=== PATIENT | male | born 1960 | race African-American/Black ===

== ENCOUNTER 2020-02-13 07:17 | Outpatient (REF) | payer BC, SELFPAY ==
[2020-02-17 13:08] LABS: Testosterone, Free 49.4 pg/mL (35.0-155.0); Testosterone, Total 377 ng/dL (250-1100)
== END 2020-02-13 07:18 | disposition home or self-care (01) ==
LOC: HO.LAB 07:17
PROVIDERS: PCP Internal Medicine; Visit Provider Internal Medicine
DX: N52.9 Male erectile dysfunction, unspecified (principal)
CPT/HCPCS: 84402; 84403

== ENCOUNTER 2020-11-05 13:58 | Inpatient (IN) | payer BC, SELFPAY ==
--- NOTE | ~2020-11-05 | XR_ITS ---
EXAMINATION: XR CHEST CLINICAL INFORMATION: Cough, COVID positive COMPARISON: None TECHNIQUE: Portable upright AP view of the chest was obtained. FINDINGS: There are scattered patchy airspace opacities left mid and lower zone and right lower zone. There is no confluent lobar segmental airspace consolidation or effusion. No pneumothorax or pneumomediastinum. The heart is normal in size. The vascularity is normal. There is levocurvature thoracic spine. XR/XR chest 1V IMPRESSION: Scattered patchy airspace opacities greater on left. Finding may be associated with atypical pneumonia/viral process.
[2020-11-05 14:17] VITALS: BP 122/72; BP 147/61; PULSE 115; PULSE 117; RESP 36; TEMP 39.1; O2SAT 87; O2SAT 89; BMI 30.2
--- NOTE | 2020-11-05 14:18 | ECG_ITS ---
Test Reason : DYSPNEA Blood Pressure : / mmHG Vent. Rate : 118 BPM Atrial Rate : 118 BPM P-R Int : 148 ms QRS Dur : 082 ms QT Int : 324 ms P-R-T Axes : 071 -07 024 degrees QTc Int : 454 ms Sinus tachycardia with Premature atrial complexes Otherwise normal ECG When compared with ECG of 05-JUN-2008 12:51, Premature atrial complexes are now Present Heart rate has increased Referred By: Isidro Graves Electronically Signed By:MATT RODRIGUEZ
--- NOTE | 2020-11-05 14:20 | ED_ITS ---
HPI - SOB/Dyspnea General Chief Complaint: Dyspnea Stated Complaint: shortness of breath with chest tightness Time Seen by Provider: 11/05/20 14:12 Source: patient Mode of arrival: ambulatory Limitations: no limitations History of Present Illness HPI Narrative: 60-year-old 10 days positive for COVID presents emergency department complaining of shortness of breath. Patient is an immunized. Patient states he is waiting for more information before he would be vaccinated. Patient arrives hypoxic in the 80s and tachycardic. Patient states he gets very short of breath and can ambulation. Patient states he also has intermittent fevers and headaches. He is not taking anything for the fever or the headache. Patient has baseline chronic back pain insomnia and hypertension MD elicited complaint: shortness of breath Related Data Previous Rx's Medication Instructions Recorded cyclobenzaprine 10 mg tablet 10 mg PO TID PRN 30 Days #90 tab 01/27/20 tadalafil 20 mg tablet 20 mg PO DAILY PRN 30 Days #30 tab 01/27/20 lisinopril 20 mg tablet 20 mg PO DAILY 90 Days #90 tab 04/27/20 naproxen 500 mg tablet 500 mg PO Q12H PRN #60 tab 05/07/20 trazodone 300 mg tablet 300 mg PO BEDTIME PRN 90 Days #90 09/05/20 tab Allergies Allergy/AdvReac Type Severity Reaction Status Date / Time No Known Allergies Allergy Verified 04/27/20 17:28 Review of Systems Review of Systems: Review of systems: General: Patient denies any fever chills recent illness or falls Musculoskeletal: Denies back pain or body aches or other injuries HEENT: headache denies , runny nose, ear pain Respiratory: shortness of breath, cough Cardiovascular: no chest pain or palpitations : denies dysuria, frequency Abdomen: no nausea vomiting denies abdominal pain Extremities: no swelling, no pain Skin: no diaphoresis Yes all other systems are reviewed and are negative PMF Past Medical History Medical History (Updated 11/05/20 @ 15:41 by Isidro Graves DO) Benign essential hypertension Erectile dysfunction Insomnia Lumbar degenerative disc disease Obesity (BMI 30-39.9) Obstructive sleep apnea Spasm of muscle of lower back Surgical History History of colonoscopy History of repair of rotator cuff Family History Family History Father Hypertension Cancer Mother Cancer Social History Social History Alcohol intake: current Alcohol intake frequency: holidays/special occasions only Alcohol type: wine Advance Directives: No Advance Directives Information Provided: No Physical Exam Vital Signs: Vital Signs: Last Vital Signs Temp 102.3 F H 11/05/20 14:17 Pulse 117 H 11/05/20 14:17 Resp 36 H 11/05/20 14:17 BP 122/72 11/05/20 14:17 Pulse Ox 89 L 11/05/20 14:17 Body Mass Index 30.2 General: Well-appearing well-nourished in no signs of distress HEENT: Normocephalic atraumatic Neck: No signs of JVD, no masses no tenderness or lymphadenopathy Cardiovascular: Regular rate and rhythm Respiratory: Clear to auscultation bilaterally Abdomen: Soft nontender no masses . Extremities: Normal pedal pulses no signs of edema Skin: Dry warm no rashes Back: No tenderness full ROM MDM - SOB/Dyspnea MDM Narrative Medical decision making narrative: Concern for worsening COVID I will give patient for x-ray patient is likely going to be admission starts in the 120s he is requiring oxygen at this time. I will give the patient Decadron since he is not wheezing the patient will not need breathing treatments and the patient Decadron. Will give patient fluids and will get a complete workup. 1537 HR improved patient still requiring oxygen and XR consistent with covid I will admit to medicine. Lab Data Result diagrams: 11/05/20 14:35 11/05/20 14:35 Labs: Lab Results 11/05/20 11/05/20 11/05/20 Range/Units 14:35 14:35 14:35 WBC 6.6 (4.8-10.8) X10*3/uL RBC 4.39 L (4.60-5.80) X10*6/uL Hgb 12.0 L (14.0-18.0) g/dl Hct 38.0 L (42-52) % MCV 86.6 (80-98) fL MCH 27.3 (27.0-33.0) pg MCHC 31.6 (31.0-36.0) g/dl RDW 14.0 (11.0-16.0) % Plt Count 173 (160-400) X10*3/uL MPV 10.8 (9.4-12.4) fL Immature Gran % (Auto) 0.3 (0.0-0.4) % Neut % (Auto) 85.6 H (45-73) % Lymph % (Auto) 9.0 L (20-40) % Crockett % (Auto) 5.1 (2-11) % Eos % (Auto) 0.0 (0-4) % Baso % (Auto) 0.0 (0-2) % Lymph # (Auto) 0.6 L (1.2-4.9) X10*3/uL Crockett # (Auto) 0.3 (0.1-1.2) X10*3/uL Eos # (Auto) 0.0 (0.0-0.4) X10*3/uL Baso # (Auto) 0.0 (0.0-0.2) X10*3/uL Abs Immat Gran (auto) 0.02 (0.00-0.03) X10*3/uL Absolute Neuts (auto) 5.7 (2.0-8.3) X10*3/uL Absolute Nucleated RBC 0.000 (0.0-0.012) X10*3/uL Nucleated RBC % (auto) 0.0 (0.0-0.2) /100WBC Sodium 140 (135-145) mmol/L Potassium 4.0 (3.3-5.1) mmol/L Chloride 104 (96-108) mmol/L Carbon Dioxide 26 (22-29) mmol/L Anion Gap 14 (12-20) BUN 13 (9-16) mg/dL Creatinine 1.01 (0.5-1.4) mg/dL Estim Creat Clear Calc 99.6 Estimated GFR > 60 Random Glucose 119 H (60-115) mg/dL Lactic Acid (0.5-2.0) mmol/L Calcium 8.5 (8.4-10.2) mg/dL Total Bilirubin 0.5 (0.0-1.0) mg/dL Direct Bilirubin 0.2 (0.0-0.5) mg/dL AST 36 (5-37) U/L ALT 28 (0-40) U/L Alkaline Phosphatase 37 L (39-117) U/L Troponin I High Sens (<3.5-35.0) ng/L C-Reactive Protein 18.52 H (< or = 0.50) mg/dL Total Protein 6.6 (6.5-8.0) g/dL Albumin 3.7 (3.5-5.0) g/dL Lipase 32 (8-78) U/L COVID-19 ([facility]) (Negative) COVID-19 Clin Com 11/05/20 11/05/20 11/05/20 Range/Units 14:35 14:35 14:36 WBC (4.8-10.8) X10*3/uL RBC (4.60-5.80) X10*6/uL Hgb (14.0-18.0) g/dl Hct (42-52) % MCV (80-98) fL MCH (27.0-33.0) pg MCHC (31.0-36.0) g/dl RDW (11.0-16.0) % Plt Count (160-400) X10*3/uL MPV (9.4-12.4) fL Immature Gran % (Auto) (0.0-0.4) % Neut % (Auto) (45-73) % Lymph % (Auto) (20-40) % Crockett % (Auto) (2-11) % Eos % (Auto) (0-4) % Baso % (Auto) (0-2) % Lymph # (Auto) (1.2-4.9) X10*3/uL Crockett # (Auto) (0.1-1.2) X10*3/uL Eos # (Auto) (0.0-0.4) X10*3/uL Baso # (Auto) (0.0-0.2) X10*3/uL Abs Immat Gran (auto) (0.00-0.03) X10*3/uL Absolute Neuts (auto) (2.0-8.3) X10*3/uL Absolute Nucleated RBC (0.0-0.012) X10*3/uL Nucleated RBC % (auto) (0.0-0.2) /100WBC Sodium (135-145) mmol/L Potassium (3.3-5.1) mmol/L Chloride (96-108) mmol/L Carbon Dioxide (22-29) mmol/L Anion Gap (12-20) BUN (9-16) mg/dL Creatinine (0.5-1.4) mg/dL Estim Creat Clear Calc Estimated GFR Random Glucose (60-115) mg/dL Lactic Acid 1.4 (0.5-2.0) mmol/L Calcium (8.4-10.2) mg/dL Total Bilirubin (0.0-1.0) mg/dL Direct Bilirubin (0.0-0.5) mg/dL AST (5-37) U/L ALT (0-40) U/L Alkaline Phosphatase (39-117) U/L Troponin I High Sens 16.2 (<3.5-35.0) ng/L C-Reactive Protein (< or = 0.50) mg/dL Total Protein (6.5-8.0) g/dL Albumin (3.5-5.0) g/dL Lipase (8-78) U/L COVID-19 ([facility]) Positive A (Negative) COVID-19 Clin Com See Note ECG Data Attestation: I personally reviewed and interpreted this ECG as follows: (RAte 118 sinus tachycardia no signs of ischemia) Discharge Plan Discharge Clinical Impression: COVID, Hypoxia, Tachycardia Patient Disposition: Admitted As Inpatient
[2020-11-05 14:43] LABS: MANUAL DIFF FLAG NO
[2020-11-05] MEDS: 0.9 % Sodium Chloride 500 ML 999 ML IV (14:49)
[2020-11-05] MEDS: Ketorolac Tromethamine 15 MG/ML VIAL IVPUSH (14:50)
[2020-11-05] MEDS: dexAMETHasone sod phosphate 10 MG/ML VIAL IVPUSH (14:51)
[2020-11-05] MEDS: Lactated Ringers 1,000 ML 999 ML IV (14:51)
[2020-11-05 14:53] LABS: Imm Gran Abs Auto 0.02 X10*3/uL (0.00-0.03); Imm Gran Pct Auto 0.3 % (0.0-0.4); Lymphocytes Absolute Auto 0.6 X10*3/uL (1.2-4.9); Mean Corpuscular HGB Conc 31.6 g/dl (31.0-36.0); Mean Corpuscular Hemoglobin 27.3 pg (27.0-33.0); Mean Corpuscular Volume 86.6 fL (80-98); Mean Platelet Volume 10.8 fL (9.4-12.4); Monocytes Absolute Auto 0.3 X10*3/uL (0.1-1.2); Monocytes Percent Auto 5.1 % (2-11); Neutrophils Absolute Auto 5.7 X10*3/uL (2.0-8.3); Neutrophils Percent Auto 85.6 % (45-73); Platelet Count 173 X10*3/uL (160-400); Red Blood Count 4.39 X10*6/uL (4.60-5.80); White Blood Count 6.6 X10*3/uL (4.8-10.8)
[2020-11-05 15:04] LABS: COVID-19 Test Positive (Negative)
[2020-11-05 15:07] LABS: Lactic Acid 1.4 mmol/L (0.5-2.0)
[2020-11-05 15:10] LABS: Anion Gap 14 (12-20); Blood Urea Nitrogen 13 mg/dL (9-16); C Reactive Protein 18.52 mg/dL (< or = 0.50); Calcium 8.5 mg/dL (8.4-10.2); Carbon Dioxide 26 mmol/L (22-29); Chloride 104 mmol/L (96-108); Creatinine Clr Calc Pharmacy 99.6; Estimated Glomerular Filt Rate > 60; Glucose Random 119 mg/dL (60-115); Lipase 32 U/L (8-78); Sodium 140 mmol/L (135-145)
[2020-11-05 15:11] LABS: Alanine Aminotransferase 28 U/L (0-40); Albumin Level 3.7 g/dL (3.5-5.0); Alkaline Phosphatase 37 U/L (39-117); Aspartate Amino Transferase 36 U/L (5-37); Bilirubin Direct 0.2 mg/dL (0.0-0.5); Bilirubin Total 0.5 mg/dL (0.0-1.0); Total Protein 6.6 g/dL (6.5-8.0)
[2020-11-05 15:14] LABS: Troponin-I High Sensitivity 16.2 ng/L (<3.5-35.0)
[2020-11-05 16:28] VITALS: BP 152/86; PULSE 93; RESP 20; O2SAT 96
--- NOTE | 2020-11-05 16:31 | PM.IMHP ---
History of Present Illness Date of Service: 11/05/20 Chief Complaint: Shortness of breath 60-year-old male with hypertension chronic back pain due to degenerative disck disease who presents to the ED with increasing shortness of breath. He has been having viral symptoms since Oct 23 and tested positive for covid on ThursdayOct 28 and has been progresively getting worse until today and decided to come to the ED where he is noted to be hypoxic iwht O2 of 89 on room air, 96 on 2 liters and had a fever 102. CXR shows covid pattern pneumonia. Given Doxy and Dexamethasone in ED. Initially tachypnic and tachycardic but now better. He has NOT yet been vaccinated for covid, citing that he's waiting for more information on the vaccine Review of Systems Review of Systems: Gen: + fever Resp:+ sob,+cough CV: no chest, no ORDOÑEZ, no leg edema GI: No n/v, no abd pain Neuro: No confusion Yes all other systems are reviewed and are negative [facility] Medical History Benign essential hypertension Erectile dysfunction Insomnia Lumbar degenerative disc disease Obesity (BMI 30-39.9) Obstructive sleep apnea Spasm of muscle of lower back Family History Father Hypertension Cancer Mother Cancer Surgical History History of colonoscopy History of repair of rotator cuff Social History Alcohol intake: current Alcohol intake frequency: holidays/special occasions only Alcohol type: wine Advance Directives: No Advance Directives Information Provided: No Meds Allergies Allergy/AdvReac Type Severity Reaction Status Date / Time No Known Allergies Allergy Verified 04/27/20 17:28 Active Medications: Current Medications Generic Name Dose Route Start Last Admin Trade Name Freq PRN Reason Stop Dose Admin Dexamethasone Sodium Phosphate 6 mg 11/06/20 09:00 Dexamethasone Sod Phosphate 4 Mg/Ml Vial IVPUSH DAILY FELY Enoxaparin Sodium 40 mg 11/05/20 16:30 Enoxaparin Sodium 40 Mg/0.4 Ml Syringe SUBCUT Q24H FELY Sodium Chloride 3 ml 11/06/20 00:00 0.9 % Sodium Chloride Flush 3 Ml Syringe IVFLUSH QSHIFT FELY Physical Exam Vital Signs and Narrative: Vital Signs: Last Vital Signs Temp 102.3 F H 11/05/20 14:17 Pulse 93 11/05/20 16:28 Resp 20 11/05/20 16:28 BP 152/86 H 11/05/20 16:28 Pulse Ox 96 11/05/20 16:28 Body Mass Index 30.2 General: AO X 3, no acute distress Resp: Speaks in full sentences, no accessory muscle use the no obvious respiratory distress. Auscultation avoided due to active coli. CVS: regular rate GI: +BS, NT, no distention Skin: No rash Neuro: motor grossly intact Psych: appropriate affect Results Labs CBC and Chem 7: 11/05/20 14:35 11/05/20 14:35 Labs: Laboratory Results - last 24 hr 11/05/20 11/05/20 11/05/20 14:35 14:35 14:35 MCV 86.6 MCH 27.3 MCHC 31.6 RDW 14.0 Plt Count 173 MPV 10.8 Immature Gran % (Auto) 0.3 Neut % (Auto) 85.6 H Lymph % (Auto) 9.0 L Sherman % (Auto) 5.1 Eos % (Auto) 0.0 Baso % (Auto) 0.0 Lymph # (Auto) 0.6 L Sherman # (Auto) 0.3 Eos # (Auto) 0.0 Baso # (Auto) 0.0 Abs Immat Gran (auto) 0.02 Absolute Neuts (auto) 5.7 Absolute Nucleated RBC 0.000 Nucleated RBC % (auto) 0.0 Anion Gap 14 Estim Creat Clear Calc 99.6 Estimated GFR > 60 Random Glucose 119 H Lactic Acid Calcium 8.5 Total Bilirubin 0.5 Direct Bilirubin 0.2 AST 36 ALT 28 Alkaline Phosphatase 37 L Troponin I High Sens C-Reactive Protein 18.52 H Total Protein 6.6 Albumin 3.7 Lipase 32 COVID-19 ([facility]) COVID-19 Clin Com 11/05/20 11/05/20 11/05/20 14:35 14:35 14:36 MCV MCH MCHC RDW Plt Count MPV Immature Gran % (Auto) Neut % (Auto) Lymph % (Auto) Sherman % (Auto) Eos % (Auto) Baso % (Auto) Lymph # (Auto) Sherman # (Auto) Eos # (Auto) Baso # (Auto) Abs Immat Gran (auto) Absolute Neuts (auto) Absolute Nucleated RBC Nucleated RBC % (auto) Anion Gap Estim Creat Clear Calc Estimated GFR Random Glucose Lactic Acid 1.4 Calcium Total Bilirubin Direct Bilirubin AST ALT Alkaline Phosphatase Troponin I High Sens 16.2 C-Reactive Protein Total Protein Albumin Lipase COVID-19 ([facility]) Positive A COVID-19 Clin Com See Note Imaging Radiologist's Impressions: Impressions Chest X-Ray 11/05/20 14:18 IMPRESSION: Scattered patchy airspace opacities greater on left. Finding may be associated with atypical pneumonia/viral process. Assessment and Plan (1) Acute respiratory failure with hypoxia: Status: Acute (2) Pneumonia due to COVID-19 virus: Status: Acute (3) Benign essential hypertension: Status: Acute 60-year-old male on vaccinated for COVID-19 who tested positive on October 23 cavity with her progressive symptoms, and found to have acute hypoxic respiratory failure due to COVID-19 pneumonia. 1/acute hypoxic respiratory failure due to COVID-19. -IV Decadron day 1 -oxygen to titrate O2 to 92% -empiric doxycycline for COVID pneumonia. Hypertension--continue Lisinopril 3. Chronic back pain--Flexeril, Naproxen DVT prophylaxis--Lovenox Quality Stroke Does the patient have a stroke diagnosis?: No VTE Prior VTE?: No VTE Risk Level:: Medical - moderate - high VTE Device Contraindication: N/A - Device Ordered VTE Drug Contraindication: N/A - Med Ordered
[2020-11-05] MEDS: Enoxaparin Sodium 40 MG/0.4 ML SYRINGE SUBCUT (18:21)
[2020-11-05 18:22] VITALS: BP 131/81; PULSE 77; RESP 18; O2SAT 96
[2020-11-05 18:41] VITALS: BP 158/81; PULSE 96; RESP 20; TEMP 37; O2SAT 90
[2020-11-05 23:14] VITALS: BP 128/72; PULSE 79; RESP 20; TEMP 36.6; O2SAT 96
[2020-11-06 03:56] VITALS: BP 141/85; PULSE 83; RESP 18; TEMP 36.7; O2SAT 92
[2020-11-06 07:10] VITALS: BP 157/87; PULSE 89; RESP 18; TEMP 36.7; O2SAT 95
[2020-11-06] MEDS: dexAMETHasone sod phosphate 4 MG/ML VIAL 6 MG IVPUSH (08:13)
[2020-11-06] MEDS: 0.9 % Sodium Chloride Flush 3 ML SYRINGE IVFLUSH ×3 (08:13→16:59)
--- NOTE | 2020-11-06 09:50 | MHC.CM.PN ---
Patient is Covid positive; CM spoke with him on his cell @ [phone]. Patient lives alone in an apartment and he is functionally independent. Home/no services is the goal for dc and CM has initiated and will follow for dc planning. 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 Tab Rush.
[2020-11-06 11:35] VITALS: BP 158/87; PULSE 81; RESP 19; TEMP 36.8; O2SAT 95
[2020-11-06 15:13] VITALS: BP 158/87; PULSE 95; RESP 20; TEMP 36.4; O2SAT 90
--- NOTE | 2020-11-06 15:38 | P.CNID_ITS ---
History of Present Illness Data of Consult Service Date: 11/06/20 Requesting physician: Kishore Owens Primary Care Provider: Tab Rush MD HPI Reason for consult: COVID pneumonia He reports having cough and shortness of breath since October 23 He has not been vaccinated he says since [place] has not told him to. He felt he had to go through a Testimony He feels about the same as several days ago and is alert He is on minimal oxygen Review of Systems Review of Systems: Yes all other systems are reviewed and are negative [facility] Past Medical History Medical History (Updated 11/20/20 @ 10:00 by Tab Rush MD) Benign essential hypertension Erectile dysfunction Insomnia Lumbar degenerative disc disease Obesity (BMI 30-39.9) Obstructive sleep apnea Spasm of muscle of lower back Family History Family History (Updated 11/20/20 @ 09:29 by AFRICA Zimmerman) Father Hypertension Cancer Mother Cancer Family history: reviewed and not pertinent Surgical History Surgical History History of colonoscopy History of repair of rotator cuff Social History Social History (Updated 11/20/20 @ 09:29 by AFRICA Zimmerman) Household Members: None Housing: Apartment Do you presently have visiting nurse or other home services: No Alcohol intake: current Alcohol intake frequency: holidays/special occasions only Alcohol type: wine Patient Tobacco Use Status: Former Tobacco user Tobacco use type: Cigarette Second Hand Smoke Exposure: No service: No Current occupational status: employed Meds Allergies Allergy/AdvReac Type Severity Reaction Status Date / Time No Known Allergies Allergy Verified 11/20/20 10:02 Active Medications: Current Medications Generic Name Dose Route Start Last Admin Trade Name Freq PRN Reason Stop Dose Admin Dexamethasone Sodium Phosphate 6 mg 11/06/20 09:00 11/06/20 08:13 Dexamethasone Sod Phosphate 4 Mg/Ml Vial IVPUSH 6 mg DAILY FELY Administration Enoxaparin Sodium 40 mg 11/05/20 16:30 11/05/20 18:21 Enoxaparin Sodium 40 Mg/0.4 Ml Syringe SUBCUT 40 mg Q24H FELY Administration Sodium Chloride 3 ml 11/06/20 00:00 11/06/20 08:13 0.9 % Sodium Chloride Flush 3 Ml Syringe IVFLUSH 3 ml QSHIFT [facility] Administration Home Medications Medication Instructions Recorded Confirmed Last Taken Type lisinopril 20 mg tablet 20 mg PO DAILY 11/20/20 11/20/20 Unknown History Physical Exam Vital Signs: Vital Signs: Last Vital Signs Temp 97.5 F 11/06/20 15:13 Pulse 95 11/06/20 15:13 Resp 20 11/06/20 15:13 BP 158/87 H 11/06/20 15:13 Pulse Ox 90 L 11/06/20 15:13 Body Mass Index 30.2 Const: General: cooperative HENMT: Head: Yes normal to inspection Mouth: Normal oral and palatal mucosa present Eyes: General: appearance normal, both eyes and all related structures Resp: Effort & Inspection: normal respiratory effort Cardio: Rate: regular rate Rhythm: regular rhythm GI: Palpation (GI): nontender Skin: General skin exam: no rashes or lesions noted Results Labs CBC & Chem 7: 11/05/20 14:35 11/05/20 14:35 Assessment and Plan (1) Pneumonia due to COVID-19 virus: Status: Acute He has had COVID about fourteen days He has minimal oxygen requirements He is past stage Remdesivir effective. Suggest Oxygen as needed May still use Dexamethasone for total 10 days (2) Acute respiratory failure with hypoxia: Status: Resolved
--- NOTE | 2020-11-06 16:40 | P.PNIM_ITS ---
Subjective Subjective Date of Service: 11/06/20 Interval History: f/u on hypoxia d/t covid, feels better Review of Systems No fever +sob, cough Physical Exam Vital Signs: Vital Signs: Last Vital Signs Temp 97.5 F 11/06/20 15:13 Pulse 95 11/06/20 15:13 Resp 20 11/06/20 15:13 BP 158/87 H 11/06/20 15:13 Pulse Ox 90 L 11/06/20 15:13 Body Mass Index 30.2 General: AO X 3, no acute distress Resp: normal effort, speaks in full sentences CVS: S1,S2,RRR GI: +BS, NT, no distention Skin: No rash Neuro: motor grossly intact Psych: appropriate affect Objective Data Current Medications Generic Name Dose Route Start Last Admin Trade Name Freq PRN Reason Stop Dose Admin Dexamethasone Sodium Phosphate 6 mg 11/06/20 09:00 11/06/20 08:13 Dexamethasone Sod Phosphate 4 Mg/Ml Vial IVPUSH 6 mg DAILY FELY Administration Enoxaparin Sodium 40 mg 11/05/20 16:30 11/05/20 18:21 Enoxaparin Sodium 40 Mg/0.4 Ml Syringe SUBCUT 40 mg Q24H FELY Administration Sodium Chloride 3 ml 11/06/20 00:00 11/06/20 08:13 0.9 % Sodium Chloride Flush 3 Ml Syringe IVFLUSH 3 ml QSHIFT EFLY Administration Labs CBC & Chem 7: 11/05/20 14:35 11/05/20 14:35 Assessment and Plan (1) Pneumonia due to COVID-19 virus: Status: Acute (2) Acute respiratory failure with hypoxia: Status: Acute (3) Benign essential hypertension: Status: Acute Assessment and Plan: 60-year-old male on vaccinated for COVID-19 who tested positive on October 23 cavity with her progressive symptoms, and found to have acute hypoxic res piratory failure due to COVID-19 pneumonia. 1/acute hypoxic respiratory failure due to COVID-19. -IV Decadron day 2 -oxygen to titrate O2 to 92% -empiric doxycycline D2 for COVID pneumonia. -ID consult Hypertension--continue Lisinopril 3. Chronic back pain--Flexeril, Naproxen Quality Stroke Does the patient have a stroke diagnosis?: No VTE Prior VTE?: No VTE Risk Level:: Medical - moderate - high VTE Device Contraindication: N/A - Device Ordered VTE Drug Contraindication: N/A - Med Ordered
[2020-11-06] MEDS: Enoxaparin Sodium 40 MG/0.4 ML SYRINGE SUBCUT (16:57)
[2020-11-06 19:18] VITALS: BP 153/88; PULSE 94; RESP 20; TEMP 36.4; O2SAT 93
[2020-11-06] MEDS: Benzonatate 100 MG CAPSULE PO (19:31)
[2020-11-06] MEDS: traZODone HCL 50 MG TABLET PO (21:48)
[2020-11-06 23:54] VITALS: BP 140/73; PULSE 63; RESP 18; TEMP 36.6; O2SAT 95
[2020-11-07] MEDS: 0.9 % Sodium Chloride Flush 3 ML SYRINGE IVFLUSH ×3 (00:55→17:06)
[2020-11-07] MEDS: Benzonatate 100 MG CAPSULE PO (03:14)
[2020-11-07 03:47] VITALS: BP 139/74; PULSE 70; RESP 18; TEMP 37.2; O2SAT 95
[2020-11-07 08:00] VITALS: BP 160/96; PULSE 72; RESP 21; TEMP 36.5; O2SAT 95
[2020-11-07] MEDS: dexAMETHasone sod phosphate 4 MG/ML VIAL 6 MG IVPUSH (08:26)
--- NOTE | 2020-11-07 11:11 | MHC.CM.PN ---
Patient has not yet been medically cleared for dc (IV Decadron). Home is the goal for dc and CM will continue to follow for possible need to adjust the dc plan.
[2020-11-07 12:00] VITALS: BP 164/93; PULSE 77; RESP 20; TEMP 36.6; O2SAT 94
--- NOTE | 2020-11-07 13:51 | HO.PM.IMPN ---
Subjective Subjective Date of Service: 11/07/20 Interval History: f/u on covid, acute hypoxic resp failure, oxygenation is better, satting better 94 on 2l Review of Systems sob, cough, no fever Physical Exam Vital Signs: Vital Signs: Last Vital Signs Temp 97.9 F 11/07/20 12:00 Pulse 77 11/07/20 12:00 Resp 20 11/07/20 12:00 BP 164/93 H 11/07/20 12:00 Pulse Ox 94 11/07/20 12:00 Body Mass Index 30.2 General: AO X 3, no acute distress Resp:? normal effort, speaks in full sentences CVS: RRR GI: +BS, NT, no distention Skin: No rash Neuro:? motor grossly intact Psych: appropriate affect Objective Data Current Medications Generic Name Dose Route Start Last Admin Trade Name Freq PRN Reason Stop Dose Admin Benzonatate 100 mg 11/06/20 19:16 11/07/20 03:14 Benzonatate 100 Mg Capsule PO 100 mg TID PRN Administration Cough Dexamethasone Sodium Phosphate 6 mg 11/06/20 09:00 11/07/20 08:26 Dexamethasone Sod Phosphate 4 Mg/Ml Vial IVPUSH 6 mg DAILY FELY Administration Enoxaparin Sodium 40 mg 11/05/20 16:30 11/06/20 16:57 Enoxaparin Sodium 40 Mg/0.4 Ml Syringe SUBCUT 40 mg Q24H FELY Administration Sodium Chloride 3 ml 11/06/20 00:00 11/07/20 08:26 0.9 % Sodium Chloride Flush 3 Ml Syringe IVFLUSH 3 ml QSHIFT FELY Administration Trazodone HCl 50 mg 11/06/20 19:42 11/06/20 21:48 Trazodone Hcl 50 Mg Tablet PO 50 mg BEDTIME PRN Administration Insomnia Labs CBC & Chem 7: 11/05/20 14:35 11/05/20 14:35 Microbiology Microbiology Results: Microbiology 11/05/20 16:29 Blood Culture - Preliminary Blood - Venous No growth after 24 hours. 11/05/20 14:35 Blood Culture - Preliminary Blood - Venous No growth after 24 hours. Assessment and Plan (1) Pneumonia due to COVID-19 virus: Status: Acute (2) Acute respiratory failure with hypoxia: Status: Acute (3) Benign essential hypertension: Status: Acute Assessment and Plan: 60-year-old male on vaccinated for COVID-19 who tested positive on October 23 cavity with her progressive symptoms, and found to have acute hypoxic respiratory failure due to COVID-19 pneumonia. 1/acute hypoxic respiratory failure due to COVID-19. -IV Decadron day 3 -oxygen to titrate O2 to 92% -empiric doxycycline D2 for COVID pneumonia. -ID rec no additional treatment at this time. Hypertension--continue Lisinopril 3. Chronic back pain--Flexeril, Naproxen Gaol: wean off o2 keep sat above 90 and discharge home Quality Stroke Does the patient have a stroke diagnosis?: No VTE Prior VTE?: No VTE Risk Level:: Medical - moderate - high VTE Device Contraindication: N/A - Device Ordered VTE Drug Contraindication: N/A - Med Ordered
[2020-11-07 15:19] VITALS: BP 153/73; PULSE 69; RESP 20; TEMP 36.6; O2SAT 94
[2020-11-07] MEDS: lisinopriL 20 MG TABLET PO (17:05)
[2020-11-07] MEDS: Enoxaparin Sodium 40 MG/0.4 ML SYRINGE SUBCUT (17:05)
[2020-11-07 19:16] VITALS: BP 151/71; PULSE 93; RESP 20; TEMP 36.3; O2SAT 92
[2020-11-08] VITALS: BP 154/86; PULSE 64; RESP 20; TEMP 36.6; O2SAT 94
[2020-11-08] MEDS: 0.9 % Sodium Chloride Flush 3 ML SYRINGE IVFLUSH ×2 (00:44→07:51)
[2020-11-08 04:00] VITALS: BP 136/78; PULSE 70; RESP 20; TEMP 37.7; O2SAT 97
[2020-11-08] MEDS: dexAMETHasone sod phosphate 4 MG/ML VIAL 6 MG IVPUSH (07:50)
[2020-11-08 07:51] VITALS: BP 136/78; PULSE 70
[2020-11-08] MEDS: lisinopriL 20 MG TABLET PO (07:51)
[2020-11-08 07:57] VITALS: BP 152/90; PULSE 82; RESP 18; TEMP 36.8; O2SAT 92
--- NOTE | 2020-11-08 08:45 | PM.DS ---
DS: Providers Provider Date of Service: 11/08/20 Date of admission: 11/05/20 16:18 Primary care physician: Tab Rush MD Consults: 11/06/20 12:55 Consult to Infectious Diseases Routine Consulting Provider: Marisol Heredia Reason for consultation: covid pneumonia Has provider been notified: No DS: Diagnosis Discharge Diagnosis (1) Pneumonia due to COVID-19 virus: Status: Acute (2) Acute respiratory failure with hypoxia: Status: Acute (3) Benign essential hypertension: Status: Acute DS: Medications Discharge Medications Home Medications: Home Medications Medication Instructions Recorded Confirmed lisinopril 20 mg tablet 1 tab PO DAILY 11/05/20 11/05/20 Previous Rx's Medication Instructions Recorded trazodone 300 mg tablet 300 mg PO BEDTIME PRN 90 Days #90 09/05/20 tab DS: Summary Hospital Course Hospital Course: Chief Complaint: Shortness of breath 60-year-old male with hypertension chronic back pain due to degenerative disck disease who presents to the ED with increasing shortness of breath.? He has been having viral symptoms since Oct 23 and tested positive for covid on ThursdayOct 28 and has been progresively getting worse until today and decided to come to the ED where he is noted to be hypoxic iwht O2 of 89 on room air, 96 on 2 liters and had a fever 102. CXR shows covid pattern pneumonia. Given Doxy and Dexamethasone in ED. Initially tachypnic and tachycardic but now better.? He has NOT yet been vaccinated for covid, citing that he's waiting for more information on the vaccine. Hospital course: Patient was admitted and treated with oxgen, IV decadron and Doxycyline and over the course of hospitalization has been succesfully weaned off O2 and presently saturating 95% on room air and feels good and comfortable to go home. Will presecribe Decadron for total of 10 days, Doxycyline for 7 days. Will self monitor O2 at home and follow up with PCP Time Spent with Patient Time attestation: Total time spent providing and/or coordinating discharge services: Discharge coordination time: Greater than 30 minutes Quality: Stroke Does the patient have a stroke diagnosis?: No Physical Exam Vital Signs: Vital Signs: Last Vital Signs Temp 98.2 F 11/08/20 07:57 Pulse 82 11/08/20 07:57 Resp 18 11/08/20 07:57 BP 152/90 H 11/08/20 07:57 Pulse Ox 92 11/08/20 07:57 Body Mass Index 30.2 General: AO X 3, no acute distress Resp: normal respiratory effort, talk in full sentences and no accessory muscle use. CVS: S1,S2,RRR GI: +BS, NT, no distention Skin: No rash Neuro: motor grossly intact Psych: appropriate affect DS: Data Data Completed and Pending Labs on day of discharge: Preliminary micro results at discharge 11/05/20 16:29 Blood Culture - Preliminary Blood - Venous No growth after 48 hours. 11/05/20 14:35 Blood Culture - Preliminary Blood - Venous No growth after 48 hours. Discharge Plan Discharge Anticipated Discharge Date/Time: 11/08/20 08:48 Patient Disposition: Home, Self-Care Discharge Diagnosis: covid pneumonia with hypoxia Referrals: Tab Rush MD [Primary Care Provider] - 1 Week Discharge Medications: New dexamethasone [Decadron] 6 mg tablet 6 mg PO DAILY Qty: 6 RF: 0 doxycycline hyclate 100 mg tablet,delayed release (DR/EC) 100 mg PO BID 4 Days Qty: 8 RF: 0 Continued trazodone 300 mg tablet 300 mg PO BEDTIME PRN (Reason: insomnia) 90 Days Qty: 90 RF: 3 lisinopril 20 mg tablet 1 tab PO DAILY RF: 0 Stand Alone Forms: Patient Portal Discharge page Care Plan Goals: Full recovery from covid Health Concerns: covid 19 pneumonia with hypoxia Plan of Treatment: take Decadron as recommened take Doxycyline for pneumonia follow up with your Doctor in a week Check your oxygen level at home with over the counter pulse oxymetry monitoring (can get one at [facility]), if Oxygen is is persitently less than 88 come to ED CDC Guidelines for home isolation: - Stay away from others - Limit contact with pets and animals: If you must care for a pet, wash your hands before and after interacting with them - Wear a mask if you are sick - Cover your mouth and nose with a tissue when you cough or sneeze. Dispose of tissues in a lined trash can and wash your hands immediately with soap and water for at least 20 seconds. If soap and water are not available, clean hands with alcohol-based hand wood heel flap trimmer that contains at least 60% alcohol. - Clean your hands often with soap and water for at least 20 seconds - Avoid touching your eyes, nose and mouth with unwashed hands - Do not share dishes, drinking glasses, cups, eating utensils, towels, or bedding with other people in your home. After using these items, wash them thoroughly with soap and water or put in the emd special education teacher. - Clean high-touch surfaces in your isolation area (?sick room? and bathroom) every day; let a caregiver clean and disinfect high-touch surfaces in other areas of the home. Clean the area or item with soap and water or another detergent if it is dirty. Then, use a household disinfectant. Seek medical attention, but call first: - Seek medical care right away if your illness is worsening (for example, if you have difficulty breathing). - Call your doctor before going in: Before going to the doctor?s office or emergency room, call ahead and tell them your symptoms. They will tell you what to do. - If possible, put on a facemask before you enter the building. If you can?t put on a facemask, try to keep a safe distance from other people (at least 6 feet away). This will help protect the people in the office or waiting room. - Follow care instructions from your healthcare provider and local health department: Your local health authorities will give instructions on checking your symptoms and reporting information. Emergency warning signs for COVID-19: - Difficulty breathing or shortness of breath - Persistent pain or pressure in the chest - New confusion or inability to arouse - Bluish lips or face Additional Instructions: - [] Assessment: As above
[2020-11-08] MEDS: dexAMETHasone 6 MG TABLET PO (10:08)
--- NOTE | 2020-11-08 10:17 | MHC.CM.PN ---
Patient has been medically cleared for dc to home today, no services.
== END 2020-11-08 10:47 | disposition home or self-care (01) | DRG 137 ==
LOC: HO.ED 16:26 → HO.EDOVER 16:29 → HO.IMC 16:35
PROVIDERS: Admitting Provider Internal Medicine; Emergency Provider Student in an Organized Health Care Education/Training Program; PCP Internal Medicine; Visit Provider Internal Medicine
DX: U07.1 COVID-19 (principal); J96.01 Acute respiratory failure with hypoxia; J12.82 Pneumonia due to coronavirus disease 2019; M51.36 Other intervertebral disc degeneration, lumbar region; G47.33 Obstructive sleep apnea (adult) (pediatric); Z87.891 Personal history of nicotine dependence; Z79.899 Other long term (current) drug therapy
CPT/HCPCS: 36415; 71045; 80048; 80076; 83605; 83690; 84484; 85025; 86140; 87040; 87635; 93005; 96361; 96374; 96375; 99285; J1100; J1650; J1885; J8540

== ENCOUNTER → 2020-11-27 09:55 | Outpatient (BNVA) | payer SELFPAY | PROVIDERS: PCP Internal Medicine; Visit Provider Internal Medicine | DX: Z02.79 Encounter for issue of other medical certificate (principal) ==

== ENCOUNTER 2020-11-28 09:43 | Outpatient (REF) | payer BC, SELFPAY ==
--- NOTE | ~2020-11-28 | XR_ITS ---
EXAMINATION: XR CHEST CLINICAL INFORMATION: Covid infection COMPARISON: Previous x-ray October 2020 TECHNIQUE: 2 views of the chest were obtained. FINDINGS: The cardiac and mediastinal contours are normal. The lungs are clear. The previously identified bilateral infiltrates have resolved. There is no pleural effusion or pneumothorax. There is scoliosis and degenerative change of the spine. XR/XR chest 2V IMPRESSION: Clearing bilateral infiltrates from October 2020 exam.
== END 2020-11-28 09:44 | disposition home or self-care (01) ==
LOC: HO.HMGCX 09:43
PROVIDERS: PCP Internal Medicine; Visit Provider Internal Medicine
DX: Z13.89 Encounter for screening for other disorder (principal)
CPT/HCPCS: 71046

== ENCOUNTER 2020-12-07 10:17 | Outpatient (REF) | payer BC, SELFPAY ==
--- NOTE | ~2020-12-07 | US_ITS ---
EXAMINATION: US RETROPERITONEAL LIMITED (RENAL ONLY) CLINICAL INFORMATION: Unspecified abdominal pain. COMPARISON: None TECHNIQUE: Real-time imaging of the kidneys. FINDINGS: RIGHT KIDNEY: 10.4 x 4.7 x 6.4 cm (SAG x AP x TRV). The kidney is normal in size, contour, and echogenicity. Renal cortical thickness is normal. There is a 2 cm simple cyst in the pole. No imaging follow-up needed. No renal calculi or hydronephrosis. LEFT KIDNEY: 10.2 x 5.9 x 5.3 cm (SAG x AP x TRV). The kidney is normal in size, contour, and echogenicity. Renal cortical thickness is normal. No calculi or focal parenchymal lesions. No hydronephrosis. US/US renal BI IMPRESSION: Small right renal cyst. Otherwise unremarkable exam..
== END 2020-12-07 10:18 | disposition home or self-care (01) ==
LOC: HO.HMGCX 10:17
PROVIDERS: PCP Internal Medicine; Visit Provider Internal Medicine
DX: R10.9 Unspecified abdominal pain (principal)
CPT/HCPCS: 76775

== ENCOUNTER 2020-12-28 09:38 | Outpatient (REF) | payer BC, SELFPAY ==
[2020-12-28 11:25] LABS: MANUAL DIFF FLAG NO
[2020-12-28 11:38] LABS: Basophils Percent Auto 0.2 % (0-2); Eosinophils Absolute Auto 0.2 X10*3/uL (0.0-0.4); Eosinophils Percent Auto 4.2 % (0-4); Hematocrit 34.8 % (42-52); Imm Gran Abs Auto 0.01 X10*3/uL (0.00-0.03); Imm Gran Pct Auto 0.2 % (0.0-0.4); Lymphocytes Absolute Auto 1.7 X10*3/uL (1.2-4.9); Lymphocytes Percent Auto 32.9 % (20-40); Mean Corpuscular HGB Conc 31.6 g/dl (31.0-36.0); Mean Corpuscular Hemoglobin 27.7 pg (27.0-33.0); Mean Corpuscular Volume 87.7 fL (80-98); Mean Platelet Volume 10.5 fL (9.4-12.4); Monocytes Absolute Auto 0.7 X10*3/uL (0.1-1.2); Monocytes Percent Auto 13.5 % (2-11); Neutrophils Absolute Auto 2.5 X10*3/uL (2.0-8.3); Platelet Count 196 X10*3/uL (160-400); Red Blood Count 3.97 X10*6/uL (4.60-5.80); Red Cell Distribution Width 14.9 % (11.0-16.0)
[2020-12-28 11:51] LABS: Alanine Aminotransferase 23 U/L (0-40); Albumin Level 4.1 g/dL (3.5-5.0); Alkaline Phosphatase 49 U/L (39-117); Anion Gap 12 (12-20); Aspartate Amino Transferase 23 U/L (5-37); Bilirubin Direct 0.3 mg/dL (0.0-0.5); Bilirubin Total 0.6 mg/dL (0.0-1.0); Blood Urea Nitrogen 13 mg/dL (9-16); Calcium 9.1 mg/dL (8.4-10.2); Carbon Dioxide 25 mmol/L (22-29); Chloride 108 mmol/L (96-108); Estimated Glomerular Filt Rate > 60; Glucose Random 82 mg/dL (60-115); Iron 56 mcg/dL (45-160); Percent Iron Saturation 23 % (15-50); Potassium 4.2 mmol/L (3.3-5.1); Sodium 141 mmol/L (135-145); Total Iron Binding Capacity 240 mcg/dL (228-428); Total Protein 6.9 g/dL (6.5-8.0); Unsaturated Iron Binding 184 ug/dL
== END 2020-12-28 09:39 | disposition home or self-care (01) ==
LOC: HO.HMGCLDS 09:38
PROVIDERS: PCP Internal Medicine; Visit Provider Physician Assistant
DX: I10 Essential (primary) hypertension (principal); D50.9 Iron deficiency anemia, unspecified
CPT/HCPCS: 36415; 80048; 80076; 83540; 85025

== ENCOUNTER 2021-05-14 09:07 | Outpatient (REF) | payer BC, SELFPAY ==
[2021-05-14 11:22] LABS: MANUAL DIFF FLAG NO
[2021-05-14 11:40] LABS: Eosinophils Absolute Auto 0.1 X10*3/uL (0.0-0.4); Eosinophils Percent Auto 2.5 % (0-4); Hematocrit 39.4 % (42.0-52.0); Imm Gran Abs Auto 0.01 X10*3/uL (0.00-0.03); Imm Gran Pct Auto 0.2 % (0.0-0.4); Lymphocytes Absolute Auto 2.3 X10*3/uL (1.2-4.9); Lymphocytes Percent Auto 52.1 % (20-40); Mean Corpuscular HGB Conc 30.5 g/dl (31.0-36.0); Mean Corpuscular Hemoglobin 27.1 pg (27.0-33.0); Mean Corpuscular Volume 89.1 fL (80.0-98.0); Mean Platelet Volume 11.1 fL (9.4-12.4); Monocytes Absolute Auto 0.6 X10*3/uL (0.1-1.2); Monocytes Percent Auto 12.4 % (2-11); Neutrophils Absolute Auto 1.5 x10*3/uL (2.0-8.3); Neutrophils Percent Auto 32.8 % (45-73); Platelet Count 178 X10*3/uL (160-400); Red Blood Count 4.42 X10*6/uL (4.60-5.80); Red Cell Distribution Width 15.5 % (11.0-16.0); White Blood Count 4.5 X10*3/uL (4.8-10.8)
[2021-05-14 11:46] LABS: Appearance Urine CLEAR; Color Urine YELLOW; Glucose Urine UA NEG (NEG); Leukocyte Esterase Urine NEG (NEG); Nitrite Urine NEG (NEG); Specific Gravity - Urine >= 1.030 (1.005-1.025); Urine Blood NEG (NEG); Urine Ketones NEG (NEG); Urine Protein NEG (NEG-TRACE)
[2021-05-14 12:08] LABS: Alanine Aminotransferase 28 U/L (0-40); Alkaline Phosphatase 46 U/L (39-117); Anion Gap 11 (12-20); Aspartate Amino Transferase 32 U/L (5-37); Bilirubin Total 1.1 mg/dL (0.0-1.0); Blood Urea Nitrogen 15 mg/dL (9-16); Carbon Dioxide 28 mmol/L (22-29); Chloride 106 mmol/L (96-108); Cholesterol 172 mg/dL; Estimated Glomerular Filt Rate > 60; Glucose Fasting 93 mg/dL (60-99); HDL Cholesterol 54 mg/dL; LDL Cholesterol Calculated 109 mg/dl; Potassium 4.8 mmol/L (3.3-5.1); Sodium 140 mmol/L (135-145); Total Protein 6.7 g/dL (6.5-8.0); Triglycerides 46 mg/dL
[2021-05-14 12:13] LABS: Prostate Specific Antigen Scr 0.79 ng/mL (<0.05-4.0); Vitamin D 25-OH Total 45.2 ng/mL (>30)
== END 2021-05-14 09:08 | disposition home or self-care (01) ==
LOC: HO.HMGCLDS 09:07
PROVIDERS: Visit Provider Internal Medicine
DX: Z00.00 Encounter for general adult medical examination without abnormal findings (principal); Z12.5 Encounter for screening for malignant neoplasm of prostate; E66.9 Obesity, unspecified; I10 Essential (primary) hypertension; E55.9 Vitamin D deficiency, unspecified; E78.00 Pure hypercholesterolemia, unspecified
CPT/HCPCS: 36415; 80053; 80061; 81003; 82306; 84153; 84443; 85025

== ENCOUNTER 2021-05-20 09:43 | Outpatient (AMB) | payer BC, SELFPAY ==
[2021-05-20 09:50] VITALS: BP 160/90; PULSE 80; TEMP 35.9; O2SAT 98; BMI 34.2
--- NOTE | 2021-05-20 09:50 | A.OFFPC_ITS ---
Vital Signs 05/20/21 09:50 Height 6 ft 1 in Weight 259 lb BMI 34.2 BP 160/90 H Pulse 80 Pulse Source Pulse Oximeter Temp 96.6 F L Pulse Oximetry (%) 98 Oxygen Delivery Method Room Air Intake Visit Reasons: Work Comp Body Liner Required: No Accompanied by: Self / Same As Patient Allergies No Known Allergies Allergy (Verified 10/29/22 12:54) Medication List - Last Reconciled 05/20/21 by Tab Rush MD cyclobenzaprine 10 mg PO TID lisinopril 30 mg PO DAILY 90 days zolpidem 10 mg PO BEDTIME 30 days PRN Tobacco use date assessed: 05/20/21 HPI Work Comp HPI Details Patient comes in today for his follow up visit States that he mainly wants to discuss the results of his labs done recently - saw his results on the portal and is concerned about his anemia Recalls that he felt very fatigued one day last week and had to go home and take a nap Started taking some OTC liquid iron 10 mg BID a few days ago and has noticed some improvement in his fatigue lately He continues to experience chronic low back pain but states that this has been adequately controlled lately He denies any headaches or dizziness Denies any chest pains, no shortness of breath No nausea/ vomiting, no abdominal pain No change in bowel habits noted [facility] Medical History (Updated 10/29/22 @ 13:14 by Tab Rush MD) Benign essential hypertension Erectile dysfunction Insomnia Lumbar degenerative disc disease Obesity (BMI 30-39.9) Obstructive sleep apnea Spasm of muscle of lower back Surgical History (Updated 10/29/22 @ 13:00 by Tab Rush MD) History of colonoscopy History of repair of rotator cuff Hx of esophagogastroduodenoscopy S/P excision of lipoma (~2021) Family History Father Hypertension Cancer Mother Cancer Social History Household Members: None Housing: Apartment Do you presently have visiting nurse or other home services: No Alcohol intake: current Alcohol intake frequency: holidays/special occasions only Alcohol type: wine Patient Tobacco Use Status: Former Tobacco user Tobacco use type: Cigarette Second Hand Smoke Exposure: No service: No Current occupational status: employed Cognitive needs: No Hearing needs: No Vision needs: No Questionnaire PHQ-9 Over the last 2 weeks, how often have you been bothered by any of the following problems? 1. Little interest or pleasure in doing things: not at all 2. Feeling down, depressed, or hopeless: not at all 3. Trouble falling or staying asleep, or sleeping too much: not at all 4. Feeling tired or having little energy: not at all 5. Poor appetite or overeating: not at all 6. Feeling bad about yourself - or that you are a failure or have let yourself or your family down: not at all 7. Trouble concentrating on things, such as reading the newspaper or watching television: not at all 8. Moving or speaking so slowly that other people could have noticed. Or the opposite - being so fidgety or restless that you have been moving around a lot more than usual: not at all 9. Thoughts that you would be better off or of hurting yourself in some way: not at all Total score: 0 Depression Screening Interpretation: Negative 17559 - PHQ-9 Billing: Yes Source: Developed by Drs. Mehran Lizarraga, Mary Soliz, Bridger Guo and colleagues, with an educational marty from [employer] Thrive Questionnaire Date Thrive assessed: 05/20/21 I am a: Patient What is your living situation today?: I have a steady place to live Within the past 12 months, did the food you bought not last and you didn't have the money to get more?: Never true Within the past 12 months, did you worry whether your food would run out before you got money to buy more?: Never true Do you have trouble paying for medicines?: No Do you have trouble getting transportation to medical appointments?: No Do you have trouble paying your heating and electricity bill?: No Do you have trouble taking care of your child, family member or friend?: No Do you have trouble with day-to-day activities such as bathing, preparing meals, shopping, managing finances, etc.?: No Are you currently unemployed and looking for a job?: No Are you interested in more education?: No Currently or been in a relationship where the following occur: no concerns reported AUDIT C Alcohol Use Questionnaire (AUDIT-C) 1. How often do you have a drink containing alcohol?: Monthly or less 2. How many drinks containing alcohol do you have on a typical day when you are drinking?: 1 or 2 3. How often do you have six or more drinks on one occasion?: Never Total Score: 1 Score Reviewed/Action Taken: Yes SANJU-7 AMB Questionnaire SANJU-7 Date SANJU - 7 assessed: 05/20/21 Feeling nervous, anxious, or on edge: 0 = Not at all Not being able to stop or control worryin = Not at all Worrying too much about different things: 0 = Not at all Trouble relaxin = Not at all Being so restless that it is hard to sit still: 0 = Not at all Becoming easily annoyed or irritable: 0 = Not at all Feeling afraid as if something awful might happen: 0 = Not at all Total SANJU-7 score (0-4 normal; 5-9 mild; 10-14 moderate; 15-21 severe): 0 Source: Developed by Drs. Mehran Lizarraga, Mary Soliz, Bridger Guo and colleagues, with an educational marty from [employer]. Review of Systems Const Denies chills, Reports fatigue (increased lately), Denies fever(s) and Denies headache(s) ENT Denies dysphagia, Denies dizziness, Denies otalgia, Denies headache(s), Denies neck pain, Denies odynophagia and Denies sore throat Card Denies chest pain, Denies palpitations and Denies dyspnea Resp Denies cough and Denies dyspnea GI Denies abdominal pain, Denies constipation, Denies dysphagia, Denies heartburn, Denies diarrhea, Denies nausea, Denies odynophagia and Denies vomiting Denies dysuria, Denies nocturia and Denies urinary frequency Musc Reports back pain ( over the lower back - chronic) and Denies neck pain Skin/Breast Details: (+) raised skin lesion on the left upper arm, which he feels has gotten larger lately Neuro Denies dizziness and Denies headache(s) Endo Reports fatigue (increased lately) and Denies palpitations Physical exam (Primary Care) Vital Signs: Last Vital Signs Temp 96.6 F L 05/20/21 09:50 Pulse 80 05/20/21 09:50 BP 160/90 H 05/20/21 09:50 Pulse Ox 98 05/20/21 09:50 Oxygen Delivery Method Room Air 05/20/21 09:50 BMI result Body Mass Index 34.2 Tobacco/Smoking Status: Tobacco use Status Tobacco use date assessed 05/20/21 05/20/21 09:54 Patient Tobacco Use Status Former Tobacco user 05/20/21 09:54 Tobacco use type Cigarette 05/20/21 09:54 PHQ-9: PHQ-9 Score PHQ-9: Total score 0 05/20/21 10:44 Depression Screening Interpretation: Negative Thrive Assessment: Date of Thrive Assessment Date Thrive assessed 05/20/21 05/20/21 09:54 Currently or been in a relationship where the following occur: no concerns reported Const General: no acute distress and alert HENMT Ears: TM's normal bilaterally and EAC's normal Throat: Yes posterior oropharynx normal and Yes tonsils normal (no TP congestion) Neck Neck: Yes no lymphadenopathy and Yes supple Resp Auscultation: clear to auscultation bilaterally, no rales and no wheezes Cardio Rate: regular rate Rhythm: regular rhythm Heart sounds: no murmurs GI Palpation (GI): Soft to palpation and nontender Auscultation: normal bowel sounds Back/Spine/Pelvis Thoracic/Lumbar Spine: lumbar spinal tenderness (chronic) Skin Other: (+) raised, nontender cyst on the left upper arm Extrem General: Yes no clubbing, cyanosis or edema Results Reviewed Results Reviewed: Laboratory Tests 12/28/20 05/14/21 05/14/21 09:50 09:22 09:22 WBC 4.5 L Hgb 12.0 L Hct 39.4 L Plt Count 178 Sodium Potassium Creatinine Estimated GFR Fasting Glucose Calcium Iron 56 TIBC 240 % Saturation 23 Total Bilirubin AST ALT Triglycerides Cholesterol LDL Cholesterol, Calc HDL Cholesterol PSA Screen 25-OH Vitamin D Total TSH Ur Specific [place] >= 1.030 H Urine Protein NEG Urine Glucose (UA) NEG Urine Blood NEG 05/14/21 09:22 WBC Hgb Hct Plt Count Sodium 140 Potassium 4.8 Creatinine 0.97 Estimated GFR > 60 Fasting Glucose 93 Calcium 9.0 Iron TIBC % Saturation Total Bilirubin 1.1 H AST 32 ALT 28 Triglycerides 46 Cholesterol 172 LDL Cholesterol, Calc 109 HDL Cholesterol 54 PSA Screen 0.79 25-OH Vitamin D Total 45.2 TSH 0.70 Ur Specific [place] Urine Protein Urine Glucose (UA) Urine Blood Assessment and Plan Assessment & Plan (1) Anemia: Code(s): D64.9 - Anemia, unspecified Qualifiers: Anemia type: unspecified type Qualified Code(s): D64.9 - Anemia, unspecified Plan: Advised that he is anemic on his recent labs but his anemia is mild and would not cause him to feel as fatigued as he is claiming to be Will send him for some additional labs for further evaluation (2) Benign essential hypertension: Code(s): I10 - Essential (primary) hypertension Plan: Reinforced low sodium diet - goal is systolic BP of at least 120 to 130 mm or less Continue Lisinopril 20 mg QD Patient reminded to continue monitoring his blood pressure regularly Results of his labs done last week reviewed and discussed with patient (3) Lumbar degenerative disc disease: Code(s): M51.36 - Other intervertebral disc degeneration, lumbar region Plan: Reinforced activity and weight-lifting restrictions Continue Cyclobenzaprine 10 mg TID PRN (4) Insomnia: Code(s): G47.00 - Insomnia, unspecified Qualifiers: Insomnia type: unspecified Qualified Code(s): G47.00 - Insomnia, unspecified Plan: Sleep hygiene reinforced Continue Trazodone 300 mg Q HS PRN (5) Obesity (BMI 30-39.9): Code(s): E66.9 - Obesity, unspecified Plan: Reinforced diet/exercise as tolerated/lose weight Plan Follow up in 4 months Orders: Orders Vitamin B12 and Folate 05/20/21 D64.9 - Anemia, unspecified C Reactive Protein 05/20/21 M51.36 - Other intervertebral disc degeneration, lumbar region, M25.50 - Pain in unspecified joint IRON PROFILE 05/20/21 D50.9 - Iron deficiency anemia, unspecified Vitamin B6 05/20/21 D64.9 - Anemia, unspecified Erythrocyte Sedimentation Rate 05/20/21 M51.36 - Other intervertebral disc degeneration, lumbar region, M25.50 - Pain in unspecified joint Hemoglobin Electrophoresis 05/20/21 D64.9 - Anemia, unspecified Coding Level of Care Code Est Pt Level 4 (24400) Diagnoses Anemia D64.9 Anemia type: unspecified type Benign essential hypertension I10 Lumbar degenerative disc disease M51.36 Insomnia G47.00 Insomnia type: unspecified Obesity (BMI 30-39.9) E66.9 Additional Codes PHQ-9 - 42042 - PHQ-9 Billing: Yes ([id number])
== END 2021-05-20 10:53 | disposition home or self-care (01) ==
PROVIDERS: PCP Internal Medicine; Visit Provider Internal Medicine
DX: D64.9 Anemia, unspecified (principal); I10 Essential (primary) hypertension; M51.36 Other intervertebral disc degeneration, lumbar region; G47.00 Insomnia, unspecified; E66.9 Obesity, unspecified
CPT/HCPCS: 99214

== ENCOUNTER 2021-06-10 08:55 | Outpatient (REF) | payer BC, SELFPAY ==
[2021-06-10 12:06] LABS: MANUAL DIFF FLAG NO
[2021-06-10 12:08] LABS: Appearance Urine HAZY; Color Urine YELLOW; Glucose Urine UA NEG (NEG); Leukocyte Esterase Urine NEG (NEG); Nitrite Urine NEG (NEG); Specific Gravity - Urine 1.025 (1.005-1.025); UACC Culture Trigger NO; Urine Blood TRACE (NEG); Urine Ketones NEG (NEG); Urine Protein NEG (NEG-TRACE)
[2021-06-10 12:12] LABS: Basophils Percent Auto 0.2 % (0-2); Eosinophils Absolute Auto 0.1 X10*3/uL (0.0-0.4); Eosinophils Percent Auto 2.8 % (0-4); Hematocrit 39.2 % (42.0-52.0); Hemoglobin 11.8 g/dl (14.0-18.0); Imm Gran Abs Auto 0.01 X10*3/uL (0.00-0.03); Imm Gran Pct Auto 0.2 % (0.0-0.4); Mean Corpuscular HGB Conc 30.1 g/dl (31.0-36.0); Mean Corpuscular Hemoglobin 27.5 pg (27.0-33.0); Mean Corpuscular Volume 91.4 fL (80.0-98.0); Mean Platelet Volume 10.5 fL (9.4-12.4); Monocytes Absolute Auto 0.5 X10*3/uL (0.1-1.2); Monocytes Percent Auto 12.1 % (2-11); Neutrophils Absolute Auto 1.6 x10*3/uL (2.0-8.3); Neutrophils Percent Auto 37.7 % (45-73); Platelet Count 166 X10*3/uL (160-400); Red Blood Count 4.29 X10*6/uL (4.60-5.80); Red Cell Distribution Width 15.7 % (11.0-16.0); White Blood Count 4.2 X10*3/uL (4.8-10.8)
[2021-06-10 12:45] LABS: Prostate Specific Antigen Scr 0.71 ng/mL (<0.05-4.0)
[2021-06-10 12:50] LABS: Alanine Aminotransferase 26 U/L (0-40); Albumin Level 3.9 g/dL (3.5-5.0); Alkaline Phosphatase 45 U/L (39-117); Anion Gap 11 (12-20); Aspartate Amino Transferase 25 U/L (5-37); Bilirubin Total 0.8 mg/dL (0.0-1.0); Blood Urea Nitrogen 10 mg/dL (9-16); C Reactive Protein 0.11 mg/dL (< or = 0.50); Carbon Dioxide 28 mmol/L (22-29); Chloride 107 mmol/L (96-108); Cholesterol 191 mg/dL; Estimated Glomerular Filt Rate > 60; Glucose Fasting 98 mg/dL (60-99); HDL Cholesterol 56 mg/dL; Iron 89 mcg/dL (45-160); LDL Cholesterol Calculated 123 mg/dl; Percent Iron Saturation 36 % (15-50); Potassium 4.4 mmol/L (3.3-5.1); Sodium 142 mmol/L (135-145); Total Iron Binding Capacity 248 mcg/dL (228-428); Total Protein 6.7 g/dL (6.5-8.0); Triglycerides 61 mg/dL; Unsaturated Iron Binding 159 ug/dL
[2021-06-10 13:02] LABS: Folate 15.5 ng/mL (> or = 4.0); Vitamin B12 632 pg/mL (200-900)
[2021-06-10 13:06] LABS: Squamous Epithelial Cell Urine 1+ /LPF; WBC Urine 0 /HPF (0-4)
[2021-06-10 13:11] LABS: Erythrocyte Sedimentation Rate 5 MM/HR (0-15)
[2021-06-12 12:50] LABS: Hematocrit 37.1 % (38.5-50.0); MCH 28.2 pg (27.0-33.0); MCV 87.1 fL (80.0-100.0); RBC 4.26 Million/uL (4.20-5.80); RDW 14.4 % (11.0-15.0)
[2021-06-14 12:37] LABS: Vitamin B6 59.4 ng/mL (2.1-21.7)
== END 2021-06-10 08:56 | disposition home or self-care (01) ==
LOC: HO.HMGCLDS 08:55
PROVIDERS: Visit Provider Internal Medicine
DX: Z00.00 Encounter for general adult medical examination without abnormal findings (principal); I10 Essential (primary) hypertension; E78.00 Pure hypercholesterolemia, unspecified; E66.9 Obesity, unspecified; D64.9 Anemia, unspecified; D50.9 Iron deficiency anemia, unspecified; M51.36 Other intervertebral disc degeneration, lumbar region; M25.50 Pain in unspecified joint; Z12.5 Encounter for screening for malignant neoplasm of prostate
CPT/HCPCS: 36415; 80053; 80061; 81001; 81003; 82607; 82746; 83020; 83540; 84153; 84207; 84443; 85014; 85018; 85025; 85041; 85652; 86140

== ENCOUNTER → 2021-06-18 11:18 | Outpatient (BNVA) | payer BC, SELFPAY | PROVIDERS: PCP Internal Medicine; Visit Provider Nurse Practitioner Family | DX: Z13.89 Encounter for screening for other disorder (principal) ==

== ENCOUNTER 2021-09-26 07:01 | Outpatient (REF) | payer BC, SELFPAY ==
[2021-09-26 11:08] LABS: MANUAL DIFF FLAG NO
[2021-09-26 11:12] LABS: Basophils Percent Auto 0.2 % (0-2); Eosinophils Absolute Auto 0.1 X10*3/uL (0.0-0.4); Eosinophils Percent Auto 3.1 % (0-4); Hematocrit 39.3 % (42.0-52.0); Hemoglobin 12.1 g/dl (14.0-18.0); Imm Gran Abs Auto 0.01 X10*3/uL (0.00-0.03); Imm Gran Pct Auto 0.2 % (0.0-0.4); Lymphocytes Absolute Auto 2.2 X10*3/uL (1.2-4.9); Lymphocytes Percent Auto 48.9 % (20-40); Mean Corpuscular HGB Conc 30.8 g/dl (31.0-36.0); Mean Corpuscular Hemoglobin 27.4 pg (27.0-33.0); Mean Corpuscular Volume 88.9 fL (80.0-98.0); Mean Platelet Volume 10.6 fL (9.4-12.4); Monocytes Absolute Auto 0.6 X10*3/uL (0.1-1.2); Monocytes Percent Auto 12.6 % (2-11); Neutrophils Absolute Auto 1.6 x10*3/uL (2.0-8.3); Platelet Count 171 X10*3/uL (160-400); Red Blood Count 4.42 X10*6/uL (4.60-5.80); White Blood Count 4.5 X10*3/uL (4.8-10.8)
[2021-09-26 11:43] LABS: Iron 70 mcg/dL (45-160); Percent Iron Saturation 30 % (15-50); Total Iron Binding Capacity 235 mcg/dL (228-428); Unsaturated Iron Binding 165 ug/dL
[2021-09-26 11:55] LABS: Folate 13.7 ng/mL (> or = 4.0); Vitamin B12 714 pg/mL (200-900)
== END 2021-09-26 07:02 | disposition home or self-care (01) ==
LOC: HO.HMGCLDS 07:01
PROVIDERS: Visit Provider Internal Medicine
DX: D72.819 Decreased white blood cell count, unspecified (principal); E53.8 Deficiency of other specified B group vitamins; D50.9 Iron deficiency anemia, unspecified; I10 Essential (primary) hypertension
CPT/HCPCS: 36415; 82607; 82746; 83540; 85025

== ENCOUNTER 2022-07-17 12:49 | Outpatient (REF) | payer BC, SELFPAY ==
[2022-07-23 22:14] LABS: Testosterone, Free 260.3 pg/mL (35.0-155.0); Testosterone, Total 1454 ng/dL (250-1100)
== END 2022-07-17 12:50 | disposition home or self-care (01) ==
LOC: HO.HMGCLDS 12:49
PROVIDERS: PCP Internal Medicine; Visit Provider Internal Medicine
DX: R79.89 Other specified abnormal findings of blood chemistry (principal)
CPT/HCPCS: 36415; 84402; 84403

== ENCOUNTER 2022-10-29 12:22 | Outpatient (AMB) | payer BC, SELFPAY ==
[2022-10-29 12:35] VITALS: BP 150/98; PULSE 93; O2SAT 98; BMI 35.4
--- NOTE | 2022-10-29 12:35 | A.OFFPC_ITS ---
Vital Signs 10/29/22 12:35 10/29/22 13:15 Height 6 ft 1 in Weight 268 lb BMI 35.4 BP 150/98 H 150/92 H Blood Pressure Location Lt brachial Lt brachial Position Sitting Sitting Pulse 93 Pulse Source Pulse Oximeter Pulse Oximetry (%) 98 Oxygen Delivery Method Room Air Intake Visit Reasons: 3 month f/u Accompanied by: Self / Same As Patient Allergies No Known Allergies Allergy (Verified 10/29/22 12:54) Medication List - Last Reconciled 10/29/22 by Tab Rush MD gabapentin 300 mg PO TID 30 days lisinopril 20 mg PO DAILY methocarbamol 500 mg PO TID PRN 30 days naproxen 500 mg PO BID PRN 30 days quetiapine (Seroquel) 25 mg PO BEDTIME PRN Tobacco use date assessed: 10/29/22 Dental Screening Dental Screen Date: 10/29/22 Did you have a dental visit in the last 12 months?: No Did you have a dental problem in the last 6 months where you did not have access to dental care?: No Was dental information given to patient?: Patient has dentist HPI 3 month f/u HPI Details Patient comes in today for his follow up visit - was last seen by me in May of last year (2021) States that he feels okay He denies any headaches or dizziness Denies any chest pains, no SOB No nausea/vomiting, no abdominal pain No change in bowel habits noted Adds that he has a cyst on his left upper arm that has been present for a while now and he feels that this has gotten bigger lately - would like to see someone to have this removed if possible He continues to have trouble sleeping at night despite his current medication Also continues to experience chronic low back pain but he is now following up with pain management for his lower back and states that it has been adequately controlled lately [facility] Medical History (Updated 10/29/22 @ 13:14 by Tab Rush MD) Benign essential hypertension Erectile dysfunction Insomnia Lumbar degenerative disc disease Obesity (BMI 30-39.9) Obstructive sleep apnea Spasm of muscle of lower back Surgical History (Updated 10/29/22 @ 13:00 by Tab Rush MD) History of colonoscopy History of repair of rotator cuff Hx of esophagogastroduodenoscopy S/P excision of lipoma (~2021) Family History Father Hypertension Cancer Mother Cancer Social History Household Members: None Housing: Apartment Do you presently have visiting nurse or other home services: No Alcohol intake: current Alcohol intake frequency: holidays/special occasions only Alcohol type: wine Patient Tobacco Use Status: Former Tobacco user Tobacco use type: Cigarette Second Hand Smoke Exposure: No service: No Current occupational status: employed Cognitive needs: No Hearing needs: No Vision needs: No Questionnaire PHQ-9 Over the last 2 weeks, how often have you been bothered by any of the following problems? 1. Little interest or pleasure in doing things: not at all 2. Feeling down, depressed, or hopeless: not at all 3. Trouble falling or staying asleep, or sleeping too much: not at all 4. Feeling tired or having little energy: not at all 5. Poor appetite or overeating: not at all 6. Feeling bad about yourself - or that you are a failure or have let yourself or your family down: not at all 7. Trouble concentrating on things, such as reading the newspaper or watching television: not at all 8. Moving or speaking so slowly that other people could have noticed. Or the opposite - being so fidgety or restless that you have been moving around a lot more than usual: not at all 9. Thoughts that you would be better off or of hurting yourself in some way: not at all Total score: 0 Depression Screening Interpretation: Negative 56223 - PHQ-9 Billing: Yes Source: Developed by Drs. Mehran Lizarraga, Mary Soliz, Bridger Guo and colleagues, with an educational marty from [employer]. Thrive Questionnaire Date Thrive assessed: 10/29/22 I am a: Patient What is your living situation today?: I have a steady place to live Within the past 12 months, did the food you bought not last and you didn't have the money to get more?: Never true Within the past 12 months, did you worry whether your food would run out before you got money to buy more?: Never true Do you have trouble paying for medicines?: No Do you have trouble getting transportation to medical appointments?: No Do you have trouble paying your heating and electricity bill?: No Do you have trouble taking care of your child, family member or friend?: No Do you have trouble with day-to-day activities such as bathing, preparing meals, shopping, managing finances, etc.?: No Are you currently unemployed and looking for a job?: No Are you interested in more education?: No Please select the resources that you would like help with: None Currently or been in a relationship where the following occur: no concerns reported AUDIT C Alcohol Use Questionnaire (AUDIT-C) 1. How often do you have a drink containing alcohol?: Monthly or less 2. How many drinks containing alcohol do you have on a typical day when you are drinking?: 1 or 2 3. How often do you have six or more drinks on one occasion?: Never Total Score: 1 Score Reviewed/Action Taken: Yes SANJU-7 AMB Questionnaire SANJU-7 Date SANJU - 7 assessed: 05/23/21 Source: Developed by Drs. Mehran Lizarraga, Mary Soliz, Bridger Guo and colleagues, with an educational marty from [employer]. Review of Systems Const Denies chills, Reports difficulty sleeping, Reports fatigue, Denies fever(s) and Denies headache(s) ENT Denies dysphagia, Denies dizziness, Denies otalgia, Denies headache(s), Denies neck pain, Denies odynophagia and Denies sore throat Card Denies chest pain, Denies palpitations and Denies dyspnea Resp Denies cough and Denies dyspnea GI Denies abdominal pain, Denies constipation, Denies dysphagia, Denies heartburn, Denies diarrhea, Denies nausea, Denies odynophagia and Denies vomiting Denies dysuria, Denies nocturia and Denies urinary frequency Musc Reports back pain ( over the lower back - chronic) and Denies neck pain Skin/Breast Details: (+) raised skin lesion on the left upper arm, which he feels has gotten larger lately Neuro Denies dizziness and Denies headache(s) Endo Reports fatigue and Denies palpitations Physical exam (Primary Care) Vital Signs: Last Vital Signs Pulse 93 10/29/22 12:35 BP 150/92 H 10/29/22 13:15 Pulse Ox 98 10/29/22 12:35 Oxygen Delivery Method Room Air 10/29/22 12:35 BMI result Body Mass Index 35.4 Tobacco/Smoking Status: Tobacco use Status Tobacco use date assessed 10/29/22 10/29/22 12:39 Patient Tobacco Use Status Former Tobacco user 10/29/22 12:39 Tobacco use type Cigarette 10/29/22 12:39 PHQ-9: PHQ-9 Score PHQ-9: Total score 0 10/29/22 12:57 Depression Screening Interpretation: Negative Thrive Assessment: Date of Thrive Assessment Date Thrive assessed 10/29/22 10/29/22 12:57 Currently or been in a relationship where the following occur: no concerns rep orted Const General: no acute distress and alert HENMT Ears: TM's normal bilaterally and EAC's normal Throat: Yes posterior oropharynx normal and Yes tonsils normal (no TP congestion) Neck Neck: Yes no lymphadenopathy and Yes supple Resp Auscultation: clear to auscultation bilaterally, no rales and no wheezes Cardio Rate: regular rate Rhythm: regular rhythm Heart sounds: no murmurs GI Palpation (GI): Soft to palpation and nontender Auscultation: normal bowel sounds Back/Spine/Pelvis Thoracic/Lumbar Spine: lumbar spinal tenderness (chronic) Skin Other: (+) raised, nontender cyst on the left upper arm Extrem General: Yes no clubbing, cyanosis or edema Assessment and Plan Assessment & Plan (1) Benign essential hypertension: Code(s): I10 - Essential (primary) hypertension Plan: Reinforced low sodium diet - goal is systolic BP of at least 130 mm or less Continue Lisinopril 20 mg QD Will start patient additionally on Amlodipine 5 mg QD, as his blood pressure remains elevated today He is instructed to continue monitoring his BP regularly (2) Lumbar degenerative disc disease: Code(s): M51.36 - Other intervertebral disc degeneration, lumbar region Plan: Reinforced activity and weight-lifting restrictions Continue Methocarbamol 500 mg TID PRN, Naproxen 500 mg BID with food PRN and Gabapentin 300 mg TID Follow up with pain management as scheduled (3) Dermoid cyst of left upper extremity: Code(s): D36.7 - Benign neoplasm of other specified sites Plan: Per request, will refer him back to plastic surgery at [facility] to have this lesion removed from his left upper arm (4) Insomnia: Code(s): G47.00 - Insomnia, unspecified Qualifiers: Insomnia type: unspecified Qualified Code(s): G47.00 - Insomnia, unspecified Plan: Sleep hygiene reinforced Continue Seroquel 25 mg Q HS Will start him back on Zolpidem 10 mg Q HS PRN; he was on Zolpidem in the past but unclear as to why he is no longer on it and when he stopped taking it (5) Obesity (BMI 30-39.9): Code(s): E66.9 - Obesity, unspecified Plan: Reinforced diet/exercise as tolerated/lose weight Plan To return in 4 months for his annual physical examination Will have him recheck his labs just before he comes back in 4 months for his visit Orders: Orders Complete Blood Count Auto Diff 4 Months I10 - Essential (primary) hypertension, Z00.00 - Encounter for general adult medical examination without abnormal findings Comprehensive [place]. Panel Fast 4 Months E78.00 - Pure hypercholesterolemia, unspecified, Z00.00 - Encounter for general adult medical examination without ab normal findings Lipid Panel 4 Months E78.00 - Pure hypercholesterolemia, unspecified, Z00.00 - Encounter for general adult medical examination without abnormal findings TSH reflex Free T4 4 Months E78.00 - Pure hypercholesterolemia, unspecified, Z00.00 - Encounter for general adult medical examination without abnormal findings UA CC w/rflx Micro + Cult 4 Months R30.0 - Dysuria, Z00.00 - Encounter for general adult medical examination without abnormal findings Vitamin D 25-OH Total 4 Months E55.9 - Vitamin D deficiency, unspecified, Z00.00 - Encounter for general adult medical examination without abnormal findings Prostate Specific Antigen 4 Months N40.0 - Benign prostatic hyperplasia without lower urinary tract symptoms, Z00.00 - Encounter for general adult medical examination without abnormal findings Testosterone, Free/Total 4 Months R79.89 - Other specified abnormal findings of blood chemistry, Z00.00 - Encounter for general adult medical examination without abnormal findings Hemoglobin A1c 4 Months Z00.00 - Encounter for general adult medical examination without abnormal findings, R73.01 - Impaired fasting glucose Referrals Plastic Surgery Referral D36.7 - Benign neoplasm of other specified sites Medications: New amlodipine 5 mg PO .Q AM 30 tabs 3RF 30 days zolpidem 10 mg PO BEDTIME PRN 30 tabs 1RF insomnia 30 days Coding Level of Care Code Est Pt Level 4 (64602) Diagnoses Benign essential hypertension I10 Lumbar degenerative disc disease M51.36 Dermoid cyst of left upper extremity D36.7 Insomnia G47.00 Insomnia type: unspecified Obesity (BMI 30-39.9) E66.9
[2022-10-29 13:15] VITALS: BP 150/92
== END 2022-10-29 13:20 | disposition home or self-care (01) ==
PROVIDERS: PCP Internal Medicine; Visit Provider Internal Medicine
DX: I10 Essential (primary) hypertension (principal); M51.36 Other intervertebral disc degeneration, lumbar region; E66.9 Obesity, unspecified; Z68.35 Body mass index [BMI] 35.0-35.9, adult; D36.7 Benign neoplasm of other specified sites; G47.00 Insomnia, unspecified
CPT/HCPCS: 99214

== ENCOUNTER 2022-11-25 13:22 | Outpatient (AMB) | payer BC, SELFPAY ==
[2022-11-25 13:37] VITALS: BP 140/96; PULSE 94; O2SAT 97; BMI 35.5
--- NOTE | 2022-11-25 13:37 | A.OFFPC_ITS ---
Vital Signs 11/25/22 13:37 Height 6 ft 1 in Weight 269 lb 2 oz BMI 35.5 BP 140/96 H Blood Pressure Location Lt brachial Position Sitting Pulse 94 Pulse Source Pulse Oximeter Pulse Oximetry (%) 97 Oxygen Delivery Method Room Air Intake Visit Reasons: wc Appointment Manager Required: No Accompanied by: Self / Same As Patient Allergies No Known Allergies Allergy (Verified 11/25/22 14:01) Medication List - Last Reconciled 11/25/22 by Tab Rush MD amlodipine 5 mg PO .Q AM 30 days gabapentin 300 mg PO TID 30 days lisinopril 20 mg PO DAILY methocarbamol 500 mg PO TID PRN 30 days naproxen 500 mg PO BID PRN 30 days quetiapine (Seroquel) 25 mg PO BEDTIME PRN zolpidem 10 mg PO BEDTIME PRN 30 days Tobacco use date assessed: 11/25/22 Dental Screening Dental Screen Date: 11/25/22 Did you have a dental visit in the last 12 months?: No Did you have a dental problem in the last 6 months where you did not have access to dental care?: No Was dental information given to patient?: No HPI HPI Details Patient comes in today for his worker's comp follow up visit Feels that he is doing well on his current Rx Notes that his low back pain has been much better controlled / managed since his muscle relaxant was switched over to Methocarbamol a few months ago but notes that this sometimes does not help as well and he's had to take 2 tablets of this at a time whenever he takes it - is wondering if his dosage can be doubled so he does not run out of his med ahead of time He denies any headaches or dizziness Denies any chest pains, no SOB No nausea/vomiting, no abdominal pain No change in bowel habits noted PFSH Medical History Obesity (BMI 30-39.9) Erectile dysfunction Insomnia Obstructive sleep apnea Benign essential hypertension Lumbar degenerative disc disease Spasm of muscle of lower back Surgical History S/P excision of lipoma (~2021) Hx of esophagogastroduodenoscopy History of repair of rotator cuff History of colonoscopy Family History Father Hypertension Cancer Mother Cancer Social History Household Members: None Housing: Apartment Do you presently have visiting nurse or other home services: No Alcohol intake: current Alcohol intake frequency: holidays/special occasions only Alcohol type: wine Patient Tobacco Use Status: Former Tobacco user Tobacco use type: Cigarette Second Hand Smoke Exposure: No service: No Current occupational status: employed Cognitive needs: No Hearing needs: No Vision needs: No Questionnaire PHQ-9 Over the last 2 weeks, how often have you been bothered by any of the following problems? 1. Little interest or pleasure in doing things: not at all 2. Feeling down, depressed, or hopeless: not at all 3. Trouble falling or staying asleep, or sleeping too much: not at all 4. Feeling tired or having little energy: not at all 5. Poor appetite or overeating: not at all 6. Feeling bad about yourself - or that you are a failure or have let yourself or your family down: not at all 7. Trouble concentrating on things, such as reading the newspaper or watching television: not at all 8. Moving or speaking so slowly that other people could have noticed. Or the opposite - being so fidgety or restless that you have been moving around a lot more than usual: not at all 9. Thoughts that you would be better off or of hurting yourself in some way: not at all Total score: 0 Depression Screening Interpretation: Negative 12954 - PHQ-9 Billing: Yes Source: Developed by Drs. Mehran Lizarraga, Mary Soliz, Bridger Guo and colleagues, with an educational marty from [employer]. Thrive Questionnaire Date Thrive assessed: 11/25/22 I am a: Patient What is your living situation today?: I have a steady place to live Within the past 12 months, did the food you bought not last and you didn't have the money to get more?: Never true Within the past 12 months, did you worry whether your food would run out before you got money to buy more?: Never true Do you have trouble paying for medicines?: No Do you have trouble getting transportation to medical appointments?: No Do you have trouble paying your heating and electricity bill?: No Do you have trouble taking care of your child, family member or friend?: No Do you have trouble with day-to-day activities such as bathing, preparing meals, shopping, managing finances, etc.?: No Are you currently unemployed and looking for a job?: No Are you interested in more education?: No Please select the resources that you would like help with: None Currently or been in a relationship where the following occur: no concerns reported AUDIT C Alcohol Use Questionnaire (AUDIT-C) 1. How often do you have a drink containing alcohol?: Monthly or less 2. How many drinks containing alcohol do you have on a typical day when you are drinking?: 1 or 2 3. How often do you have six or more drinks on one occasion?: Never Total Score: 1 Score Reviewed/Action Taken: Yes SANJU-7 AMB Questionnaire SANJU-7 Date SANJU - 7 assessed: 11/25/22 Feeling nervous, anxious, or on edge: 0 = Not at all Not being able to stop or control worryin = Not at all Worrying too much about different things: 0 = Not at all Trouble relaxin = Not at all Being so restless that it is hard to sit still: 0 = Not at all Becoming easily annoyed or irritable: 0 = Not at all Feeling afraid as if something awful might happen: 0 = Not at all Total SANJU-7 score (0-4 normal; 5-9 mild; 10-14 moderate; 15-21 severe): 0 Source: Developed by Drs. Mehran Lizarraga, Mary Soliz, Bridger Guo and colleagues, with an educational marty from [employer]. Review of Systems Const Reports difficulty sleeping, Reports fatigue, Denies fever(s) and Denies headache(s) ENT Denies dysphagia, Denies dizziness, Denies otalgia, Denies headache(s), Denies neck pain, Denies odynophagia and Denies sore throat Card Denies chest pain, Denies palpitations and Denies dyspnea Resp Denies cough and Denies dyspnea GI Denies abdominal pain, Denies constipation, Denies dysphagia, Denies heartburn, Denies diarrhea, Denies nausea, Denies odynophagia and Denies vomiting Denies dysuria, Denies nocturia and Denies urinary frequency Musc Reports back pain ( over the lower back - chronic) and Denies neck pain Neuro Denies dizziness and Denies headache(s) Endo Reports fatigue and Denies palpitations Physical exam (Primary Care) Vital Signs: Last Vital Signs Pulse 94 11/25/22 13:37 BP 140/96 H 11/25/22 13:37 Pulse Ox 97 11/25/22 13:37 Oxygen Delivery Method Room Air 11/25/22 13:37 BMI result Body Mass Index 35.5 Tobacco/Smoking Status: Tobacco use Status Tobacco use date assessed 11/25/22 11/25/22 13:42 Patient Tobacco Use Status Former Tobacco user 11/25/22 13:42 Tobacco use type Cigarette 11/25/22 13:42 PHQ-9: PHQ-9 Score PHQ-9: Total score 0 11/25/22 13:42 Depression Screening Interpretation: Negative Thrive Assessment: Date of Thrive Assessment Date Thrive assessed 11/25/22 11/25/22 13:42 Currently or been in a relationship where the following occur: no concerns reported Const General: no acute distress and alert HENMT Throat: Yes posterior oropharynx normal and Yes tonsils normal (no TP congestion) Neck Neck: Yes no lymphadenopathy and Yes supple Resp Auscultation: clear to auscultation bilaterally, no rales and no wheezes Cardio Rate: regular rate Rhythm: regular rhythm Heart sounds: no murmurs GI Palpation (GI): Soft to palpation and nontender Auscultation: normal bowel sounds Back/Spine/Pelvis Thoracic/Lumbar Spine: lumbar spinal tenderness (chronic) Extrem General: Yes no clubbing, cyanosis or edema Assessment and Plan Assessment & Plan (1) Lumbar degenerative disc disease: Code(s): M51.36 - Other intervertebral disc degeneration, lumbar region Plan: Reinforced activity and weight-lifting restrictions Will try increasing his Methocarbamol from 500 mg to 750 mg TID PRN Continue Naproxen 500 mg BID with food PRN and Gabapentin 300 mg TID (2) Insomnia: Code(s): G47.00 - Insomnia, unspecified Qualifiers: Insomnia type: unspecified Qualified Code(s): G47.00 - Insomnia, unspecified Plan: Sleep hygiene reinforced Continue Zolpidem 10 mg Q HS PRN (3) Obesity (BMI 30-39.9): Code(s): E66.9 - Obesity, unspecified Plan: Reinforced diet/exercise as tolerated/lose weight Plan Follow up in 6 months Medications: Changed 2 From methocarbamol 500 mg PO TID 30 days PRN 90 tabs 5RF low back pain To methocarbamol 750 mg PO TID 30 days PRN 90 tabs 5RF low back pain Coding Level of Care Code Est Pt Level 3 (05265) Diagnoses Lumbar degenerative disc disease M51.36 Insomnia, unspecified type G47.00 Insomnia type: unspecified Obesity (BMI 30-39.9) E66.9
== END 2022-11-25 14:08 | disposition home or self-care (01) ==
PROVIDERS: PCP Internal Medicine; Visit Provider Internal Medicine
DX: M51.36 Other intervertebral disc degeneration, lumbar region (principal); Z04.2 Encounter for examination and observation following work accident; G47.00 Insomnia, unspecified; E66.9 Obesity, unspecified
CPT/HCPCS: 99213

== ENCOUNTER 2023-02-25 06:46 | Outpatient (REF) | payer BC, SELFPAY ==
[2023-02-25 11:26] LABS: Appearance Urine Clear; Color Urine Yellow; Glucose Urine UA Negative (Negative); Leukocyte Esterase Urine Negative (Negative); Nitrite Urine Negative (Negative); PH 5.5 (5.0-9.0); Specific Gravity - Urine 1.025 (1.005-1.025); Urine Blood Negative (Negative); Urine Ketones Negative (Negative); Urine Protein Negative (Neg-Trace)
[2023-02-25 11:28] LABS: MANUAL DIFF FLAG NO
[2023-02-25 11:37] LABS: Basophils Percent Auto 0.2 % (0-2); Eosinophils Absolute Auto 0.2 X10*3/uL (0.0-0.4); Eosinophils Percent Auto 4.1 % (0-4); Hemoglobin 14.3 g/dl (14.0-18.0); Imm Gran Abs Auto 0.01 X10*3/uL (0.00-0.03); Imm Gran Pct Auto 0.2 % (0.0-0.4); Lymphocytes Absolute Auto 2.2 X10*3/uL (1.2-4.9); Mean Corpuscular HGB Conc 31.8 g/dl (31.0-36.0); Mean Corpuscular Hemoglobin 28.9 pg (27.0-33.0); Mean Corpuscular Volume 90.9 fL (80.0-98.0); Monocytes Absolute Auto 0.7 X10*3/uL (0.1-1.2); Monocytes Percent Auto 12.9 % (2-11); Neutrophils Absolute Auto 2.1 x10*3/uL (2.0-8.3); Neutrophils Percent Auto 40.6 % (45-73); Platelet Count 177 X10*3/uL (160-400); Red Blood Count 4.95 X10*6/uL (4.60-5.80); Red Cell Distribution Width 15.2 % (11.0-16.0); White Blood Count 5.1 X10*3/uL (4.8-10.8)
[2023-02-25 11:52] LABS: Estimated Average Glucose 111 mg/dL; Hemoglobin A1c % 5.5 % (<6.0)
[2023-02-25 12:15] LABS: Prostate Specific Antigen 1.01 ng/mL (<0.05-4.0)
[2023-02-25 14:58] LABS: Alanine Aminotransferase 21 U/L (0-40); Albumin Level 4.1 g/dL (3.5-5.0); Alkaline Phosphatase 46 U/L (39-117); Anion Gap 12 (12-20); Aspartate Amino Transferase 28 U/L (5-37); Bilirubin Total 0.9 mg/dL (0.0-1.0); Blood Urea Nitrogen 15 mg/dL (9-16); Calcium 9.1 mg/dL (8.4-10.2); Carbon Dioxide 27 mmol/L (22-29); Chloride 108 mmol/L (96-108); Cholesterol 169 mg/dL (<200); Estimated Glomerular Filt Rate > 60; Glucose Fasting 84 mg/dL (60-99); HDL Cholesterol 46 mg/dL (>40); LDL Cholesterol Calculated 114 mg/dL (<100); Potassium 4.5 mmol/L (3.3-5.1); Sodium 142 mmol/L (135-145); Total Protein 7.1 g/dL (6.5-8.0); Triglycerides 47 mg/dL (<150)
[2023-02-25 15:14] LABS: TSH reflex Free T4 1.36 uIU/mL (0.32-4.0); Vitamin D 25-OH Total 51.7 ng/mL (>30)
[2023-03-03 20:23] LABS: Testosterone, Free 390.4 pg/mL (35.0-155.0); Testosterone, Total 1543 ng/dL (250-1100)
== END 2023-02-25 06:47 | disposition home or self-care (01) ==
LOC: HO.HMGCLDS 06:46
PROVIDERS: PCP Internal Medicine; Visit Provider Internal Medicine
DX: Z00.00 Encounter for general adult medical examination without abnormal findings (principal); Z12.5 Encounter for screening for malignant neoplasm of prostate; E78.00 Pure hypercholesterolemia, unspecified; E55.9 Vitamin D deficiency, unspecified; R79.89 Other specified abnormal findings of blood chemistry; R30.0 Dysuria; N40.0 Benign prostatic hyperplasia without lower urinary tract symptoms; R73.01 Impaired fasting glucose; I10 Essential (primary) hypertension
CPT/HCPCS: 36415; 80053; 80061; 81003; 82306; 83036; 84153; 84402; 84403; 84443; 85025

== ENCOUNTER 2023-03-05 10:44 | Outpatient (AMB) | payer BC, SELFPAY ==
[2023-03-05 10:45] VITALS: BP 130/86; PULSE 95; O2SAT 97; BMI 35.8
--- NOTE | 2023-03-05 10:45 | MHC.PC.OV ---
Vital Signs 03/05/23 10:45 Height 6 ft 1 in Weight 271 lb 6 oz BMI 35.8 BP 130/86 Blood Pressure Location Lt brachial Position Sitting Pulse 95 Pulse Source Pulse Oximeter Pulse Oximetry (%) 97 Oxygen Delivery Method Room Air Intake Visit Reasons: pe Distribution Field Technician Required: No Accompanied by: Self / Same As Patient Allergies No Known Allergies Allergy (Verified 03/05/23 11:23) Medication List - Last Reconciled 03/05/23 by Tab Rush MD amlodipine 5 mg PO .Q AM 30 days gabapentin 300 mg PO TID 30 days lisinopril 20 mg PO DAILY methocarbamol 750 mg PO TID PRN 30 days naproxen 500 mg PO BID PRN 30 days quetiapine (Seroquel) 25 mg PO BEDTIME PRN tadalafil 20 mg PO DAILY PRN 30 days Tobacco use date assessed: 11/25/22 Dental Screening Dental Screen Date: 03/05/23 Did you have a dental visit in the last 12 months?: No Did you have a dental problem in the last 6 months where you did not have access to dental care?: No Was dental information given to patient?: Patient has dentist HPI pe HPI Details Patient comes in today for his annual physical examination States that he feels okay He denies any headaches or dizziness Denies any chest pains, no SOB No nausea/vomiting, no abdominal pain No change in bowel habits noted Denies any acute urinary symptoms Still has recurrent low back pain but states that his back pains are mostly manageable Had his follow up labs done last week - to discuss his results Had his screening colonoscopy last done on 05/08/2014 - colonoscopy was normal and he was advised to get this repeated in 10 years (2024) [facility] Medical History Obesity (BMI 30-39.9) Erectile dysfunction Insomnia Obstructive sleep apnea Benign essential hypertension Lumbar degenerative disc disease Spasm of muscle of lower back Surgical History S/P excision of lipoma (~2021) Hx of esophagogastroduodenoscopy History of repair of rotator cuff History of colonoscopy Family History Father Hypertension Cancer Mother Cancer Social History Household Members: None Housing: Apartment Do you presently have visiting nurse or other home services: No Alcohol intake: current Alcohol intake frequency: holidays/special occasions only Alcohol type: wine Patient Tobacco Use Status: Former Tobacco user Tobacco use type: Cigarette e-Cigarette/Vaping Use: Never Used Second Hand Smoke Exposure: No service: No Current occupational status: employed Cognitive needs: No Hearing needs: No Vision needs: No Questionnaire PHQ-9 Over the last 2 weeks, how often have you been bothered by any of the following problems? 1. Little interest or pleasure in doing things: not at all 2. Feeling down, depressed, or hopeless: not at all 3. Trouble falling or staying asleep, or sleeping too much: not at all 4. Feeling tired or having little energy: not at all 5. Poor appetite or overeating: not at all 6. Feeling bad about yourself - or that you are a failure or have let yourself or your family down: not at all 7. Trouble concentrating on things, such as reading the newspaper or watching television: not at all 8. Moving or speaking so slowly that other people could have noticed. Or the opposite - being so fidgety or restless that you have been moving around a lot more than usual: not at all 9. Thoughts that you would be better off or of hurting yourself in some way: not at all Total score: 0 Depression Screening Interpretation: Negative Depression Screening Done: Yes 24802 - PHQ-9 Billing: Yes Source: Developed by Drs. Mehran Lizarraga, Mary Soliz, Bridger Guo and colleagues, with an educational mraty from [employer]. Thrive Questionnaire Date Thrive assessed: 03/05/23 I am a: Patient What is your living situation today?: I have a steady place to live Within the past 12 months, did the food you bought not last and you didn't have the money to get more?: Never true Within the past 12 months, did you worry whether your food would run out before you got money to buy more?: Never true Do you have trouble paying for medicines?: No Do you have trouble getting transportation to medical appointments?: No Do you have trouble paying your heating and electricity bill?: No Do you have trouble taking care of your child, family member or friend?: No Do you have trouble with day-to-day activities such as bathing, preparing meals, shopping, managing finances, etc.?: No Are you currently unemployed and looking for a job?: No Are you interested in more education?: No Please select the resources that you would like help with: None Currently or been in a relationship where the following occur: no concerns reported AUDIT C Alcohol Use Questionnaire (AUDIT-C) 1. How often do you have a drink containing alcohol?: Monthly or less 2. How many drinks containing alcohol do you have on a typical day when you are drinking?: 1 or 2 3. How often do you have six or more drinks on one occasion?: Never Total Score: 1 Score Reviewed/Action Taken: Yes SANJU-7 AMB Questionnaire SANJU-7 Date SANJU - 7 assessed: 11/25/22 Source: Developed by Drs. Mehran Lizarraga, Mary Soliz, Bridger Guo and colleagues, with an educational marty from [employer]. Review of Systems Const Denies chills, Reports difficulty sleeping, Denies fatigue, Denies fever(s), Denies headache(s), Denies malaise and Denies weakness Eyes Denies blurry vision, Denies change in vision, Denies irritation and Denies itchy eyes ENT Denies dysphagia, Denies dizziness, Denies otalgia, Denies headache(s), Denies nasal congestion, Denies neck pain, Denies odynophagia and Denies sore throat Card Denies chest pain, Denies rapid heart rate, Denies irregular heart rhythm, Denies palpitations and Denies dyspnea Resp Denies chest congestion, Denies cough, Denies dyspnea and Denies wheezing GI Denies abdominal pain, Denies bloating, Denies constipation, Denies dysphagia, Denies heartburn, Denies diarrhea, Denies nausea, Denies odynophagia and Denies vomiting Denies hematuria, Denies difficulty urinating, Denies dysuria, Denies urinary frequency and Denies urinary urgency Musc Reports back pain (over the lower back - chronic), Denies arthralgias, Denies joint swelling, Denies muscle weakness and Denies neck pain Skin/Breast Denies change in pigmentation, Denies lesions, Denies rash and Denies unusual bruising Neuro Denies dizziness, Denies headache(s), Denies paresthesias and Denies weakness Endo Denies fatigue and Denies palpitations Aller/Immun Denies itchy eyes and Denies wheezing Physical exam (Primary Care) Vital Signs: Last Vital Signs Pulse 95 03/05/23 10:45 BP 130/86 03/05/23 10:45 Pulse Ox 97 03/05/23 10:45 Oxygen Delivery Method Room Air 03/05/23 10:45 BMI result Body Mass Index 35.8 Tobacco/Smoking Status: Tobacco use Status Tobacco use date assessed 11/25/22 03/05/23 10:51 Patient Tobacco Use Status Former Tobacco user 03/05/23 10:51 Tobacco use type Cigarette 03/05/23 10:51 e-Cigarette/Vaping Use Never Used 03/05/23 10:51 PHQ-9: PHQ-9 Score PHQ-9: Total score 0 03/05/23 11:28 Depression Screening Interpretation: Negative Thrive Assessment: Date of Thrive Assessment Date Thrive assessed 03/05/23 03/05/23 11:28 Currently or been in a relationship where the following occur: no concerns reported Const General: no acute distress, alert and awake Orientation/consciousness: patient oriented x3 HENMT Head: Yes normocephalic and Yes atraumatic Ears: external ears normal, TM's normal bilaterally and EAC's normal General nose exam: No nasal discharge present Face and sinus: Yes normal facial exam and Yes sinuses nontender Teeth and gingiva: dentition normal Throat: Yes posterior oropharynx normal and Yes tonsils normal (no TP congestion) Eyes Eyelids: Yes eyelids normal Conjunctivae: conjunctivae normal Pupils: Equal, round and reactive pupils present EOM: EOMs intact bilaterally Neck Neck: Yes no lymphadenopathy and Yes supple Thyroid: Thyroid normal Resp Auscultation: clear to auscultation bilaterally, no rales and no wheezes Cardio Rate: regular rate Rhythm: regular rhythm Heart sounds: no murmurs GI Palpation (GI): Soft to palpation, nontender and No hepatosplenomegaly present Auscultation: normal bowel sounds General: Yes no CVA tenderness Back/Spine/Pelvis Back: no CVA tenderness Thoracic/Lumbar Spine: lumbar spinal tenderness Skin Lesions: no lesions Rashes: no rashes Neuro General: patient oriented x3, moves all extremities, no focal motor deficits and CN's II-XI intact bilaterally Cranial nerves: Yes Equal, round and reactive pupils present Cognition (Neuro): normal cognition Gait exam (Neuro): Normal gait present Extrem General: Yes no clubbing, cyanosis or edema Results Reviewed Results Reviewed: Laboratory Tests 02/25/23 07:00 WBC 5.1 Hgb 14.3 Hct 45.0 Plt Count 177 Sodium 142 Potassium 4.5 Creatinine 1.12 Estimated GFR > 60 Fasting Glucose 84 Hemoglobin A1c % 5.5 Calcium 9.1 AST 28 ALT 21 Triglycerides 47 Cholesterol 169 LDL Cholesterol, Calc 114 H HDL Cholesterol 46 Prostate Specific Ag 1.01 25-OH Vitamin D Total 51.7 TSH 1.36 Total Testosterone 1543 H Fr Testosterone Dialys 390.4 H Ur Specific [place] 1.025 Urine Protein Negative Urine Glucose (UA) Negative Urine Blood Negative Assessment and Plan Assessment & Plan (1) Annual physical exam: Code(s): Z00.00 - Encounter for general adult medical examination without abnormal findings Plan: Results of his labs done last week reviewed and discussed with patient He is currently up-to-date with his cancer screenings (2) Benign essential hypertension: Code(s): I10 - Essential (primary) hypertension Plan: Reinforced low sodium diet - goal is systolic BP of at least 130 mm or less Continue Lisinopril 20 mg QD and Amlodipine 5 mg QD - his BP has been much better controlled since he was started additionally on Amlodipine a few months ago He is reminded to continue monitoring his BP regularly Will have patient recheck his labs in 6 months for follow-up (3) Lumbar degenerative disc disease: Code(s): M51.36 - Other intervertebral disc degeneration, lumbar region Plan: Reinforced activity and weight-lifting restrictions Continue Methocarbamol 750 mg TID PRN, Naproxen 500 mg BID with food PRN and Gabapentin 300 mg TID Follow up with pain management as scheduled (4) Insomnia: Code(s): G47.00 - Insomnia, unspecified Qualifiers: Insomnia type: unspecified Qualified Code(s): G47.00 - Insomnia, unspecified Plan: Sleep hygiene reinforced Per request, will increase his Seroquel from 25 mg to 50 mg Q HS (5) Obesity (BMI 30-39.9): Code(s): E66.9 - Obesity, unspecified Plan: Reinforced diet/exercise as tolerated/lose weight Plan Follow up in 6 months Orders: Orders Lipid Panel 6 Months E78.00 - Pure hypercholesterolemia, unspecified Comprehensive [place]. Panel Fast 6 Months E78.00 - Pure hypercholesterolemia, unspecified Complete Blood Count Auto Diff 6 Months I10 - Essential (primary) hypertension Medications: Changed From quetiapine (Seroquel) 25 mg PO BEDTIME PRN 30 tabs 1RF insomnia G47.00 - Insomnia, unspecified To quetiapine 50 mg PO BEDTIME PRN 90 tabs 1RF insomnia G47.00 - Insomnia, unspecified Coding Level of Care Code Est Pt Prev Care 40-64y(43801) Diagnoses Annual physical exam Z00.00 Benign essential hypertension I10 Lumbar degenerative disc disease M51.36 Insomnia, unspecified type G47.00 Insomnia type: unspecified Obesity (BMI 30-39.9) E66.9
== END 2023-03-05 11:50 | disposition home or self-care (01) ==
PROVIDERS: PCP Internal Medicine; Visit Provider Internal Medicine
DX: Z00.00 Encounter for general adult medical examination without abnormal findings (principal); I10 Essential (primary) hypertension; M51.36 Other intervertebral disc degeneration, lumbar region; G47.00 Insomnia, unspecified; E66.9 Obesity, unspecified; Z68.35 Body mass index [BMI] 35.0-35.9, adult
CPT/HCPCS: 99396

== ENCOUNTER 2023-06-05 12:42 | Outpatient (AMB) | payer OTHER, BC, SELFPAY ==
--- NOTE | 2023-06-05 12:46 | MHC.PC.OV ---
Vital Signs 06/05/23 12:48 Height 6 ft 1 in Weight 275 lb 4 oz BMI 36.3 BP 130/86 Blood Pressure Location Lt brachial Position Sitting Pulse 89 Pulse Source Pulse Oximeter Pulse Oximetry (%) 96 Oxygen Delivery Method Room Air Intake Visit Reasons: Worker's Comp Intake Note: Patient is here to follow up on Worker's comp for work related back injury. Um Rn Required: No Banking Management Consulting Manager: Not Required per policy Accompanied by: Self / Same As Patient Allergies No Known Allergies Allergy (Verified 06/05/23 13:03) Medication List - Last Reconciled 06/05/23 by Tab Rush MD amlodipine 5 mg PO QAM gabapentin 300 mg PO TID 30 days lisinopril 20 mg PO DAILY methocarbamol 750 mg PO TID PRN 30 days naproxen 500 mg PO BID PRN 30 days quetiapine 50 mg PO BEDTIME PRN tadalafil 20 mg PO DAILY PRN 30 days Tobacco use date assessed: 06/05/23 Dental Screening Dental Screen Date: 06/05/23 Did you have a dental visit in the last 12 months?: No Did you have a dental problem in the last 6 months where you did not have access to dental care?: No Was dental information given to patient?: Patient has dentist HPI Worker's Comp HPI Details Patient comes in today for his worker's comp follow up visit States that he is doing well on his current Rx and that his low back pain remains well-controlled / managed on his current Rx He is presently on Methocarbamol 750 mg TID, Gabapentin 300 mg TID and Naproxen 500 mg BID PRN He denies any headaches or dizziness Denies any chest pains, no SOB No nausea/vomiting, no abdominal pain No change in bowel habits noted [facility] Medical History Obesity (BMI 30-39.9) Erectile dysfunction Insomnia Obstructive sleep apnea Benign essential hypertension Lumbar degenerative disc disease Spasm of muscle of lower back Surgical History S/P excision of lipoma (~2021) Hx of esophagogastroduodenoscopy History of repair of rotator cuff History of colonoscopy Family History Father Hypertension Cancer Mother Cancer Social History Household Members: None Housing: Apartment Do you presently have visiting nurse or other home services: No Alcohol intake: current Alcohol intake frequency: holidays/special occasions only Alcohol type: wine Patient Tobacco Use Status: Former Tobacco user Tobacco use type: Cigarette e-Cigarette/Vaping Use: Never Used Second Hand Smoke Exposure: No service: No Current occupational status: retired Cognitive needs: No Hearing needs: No Vision needs: Yes (Reading Glasses) Questionnaire PHQ-9 Over the last 2 weeks, how often have you been bothered by any of the following problems? 1. Little interest or pleasure in doing things: not at all 2. Feeling down, depressed, or hopeless: not at all 3. Trouble falling or staying asleep, or sleeping too much: not at all 4. Feeling tired or having little energy: not at all 5. Poor appetite or overeating: not at all 6. Feeling bad about yourself - or that you are a failure or have let yourself or your family down: not at all 7. Trouble concentrating on things, such as reading the newspaper or watching television: not at all 8. Moving or speaking so slowly that other people could have noticed. Or the opposite - being so fidgety or restless that you have been moving around a lot more than usual: not at all 9. Thoughts that you would be better off or of hurting yourself in some way: not at all Total score: 0 Depression Screening Interpretation: Negative Depression Screening Done: Yes 64078 - PHQ-9 Billing: Yes Source: Developed by Drs. Mehran Lizarraga, Mary Soliz, Bridger Guo and colleagues, with an educational marty from [email or web address]. Thrive Questionnaire Date Thrive assessed: 06/05/23 I am a: Patient What is your living situation today?: I have a steady place to live Within the past 12 months, did the food you bought not last and you didn't have the money to get more?: Never true Within the past 12 months, did you worry whether your food would run out before you got money to buy more?: Never true Do you have trouble paying for medicines?: No Do you have trouble getting transportation to medical appointments?: No Do you have trouble paying your heating and electricity bill?: No Do you have trouble taking care of your child, family member or friend?: No Do you have trouble with day-to-day activities such as bathing, preparing meals, shopping, managing finances, etc.?: No Are you currently unemployed and looking for a job?: No Are you interested in more education?: No Currently or been in a relationship where the following occur: no concerns reported THRIVE Score: 0 AUDIT C Alcohol Use Questionnaire (AUDIT-C) 1. How often do you have a drink containing alcohol?: Monthly or less 2. How many drinks containing alcohol do you have on a typical day when you are drinking?: 1 or 2 Total Score: 1 Score Reviewed/Action Taken: Yes SANJU-7 AMB Questionnaire SANJU-7 Date SANJU - 7 assessed: 06/05/23 Feeling nervous, anxious, or on edge: 0 = Not at all Not being able to stop or control worryin = Not at all Worrying too much about different things: 0 = Not at all Trouble relaxin = Not at all Being so restless that it is hard to sit still: 0 = Not at all Becoming easily annoyed or irritable: 0 = Not at all Feeling afraid as if something awful might happen: 0 = Not at all Total SANJU-7 score (0-4 normal; 5-9 mild; 10-14 moderate; 15-21 severe): 0 Source: Developed by Drs. Mehran Lizarraga, Mary Soliz, Bridger Guo and colleagues, with an educational marty from [email or web address]. Review of Systems Const Reports difficulty sleeping, Reports fatigue, Denies fever(s) and Denies headache(s) ENT Denies dysphagia, Denies dizziness, Denies otalgia, Denies headache(s), Denies neck pain, Denies odynophagia and Denies sore throat Card Denies chest pain, Denies palpitations and Denies dyspnea Resp Denies cough and Denies dyspnea GI Denies abdominal pain, Denies constipation, Denies dysphagia, Denies heartburn, Denies diarrhea, Denies nausea, Denies odynophagia and Denies vomiting Denies dysuria, Denies nocturia and Denies urinary frequency Musc Reports back pain (over the lower back - chronic) and Denies neck pain Skin/Breast Denies rash Neuro Denies dizziness and Denies headache(s) Endo Reports fatigue and Denies palpitations Physical exam (Primary Care) Vital Signs: Last Vital Signs Pulse 89 06/05/23 12:48 BP 130/86 06/05/23 12:48 Pulse Ox 96 06/05/23 12:48 Oxygen Delivery Method Room Air 06/05/23 12:48 BMI result Body Mass Index 36.3 Tobacco/Smoking Status: Tobacco use Status Tobacco use date assessed 06/05/23 06/05/23 12:56 Patient Tobacco Use Status Former Tobacco user 06/05/23 12:56 Tobacco use type Cigarette 06/05/23 12:56 e-Cigarette/Vaping Use Never Used 06/05/23 12:56 PHQ-9: PHQ-9 Score PHQ-9: Total score 0 06/05/23 12:56 Depression Screening Interpretation: Negative Thrive Assessment: Date of Thrive Assessment Date Thrive assessed 06/05/23 06/05/23 12:56 Currently or been in a relationship where the following occur: no concerns reported Const General: no acute distress and alert HENMT Throat: Yes posterior oropharynx normal and Yes tonsils normal (no TP congestion) Neck Neck: Yes no lymphadenopathy and Yes supple Resp Auscultation: clear to auscultation bilaterally, no rales and no wheezes Cardio Rate: regular rate Rhythm: regular rhythm Heart sounds: no murmurs GI Palpation (GI): Soft to palpation and nontender Auscultation: normal bowel sounds Back/Spine/Pelvis Thoracic/Lumbar Spine: lumbar spinal tenderness (chronic) Extrem General: Yes no clubbing, cyanosis or edema Assessment and Plan Assessment & Plan (1) Lumbar degenerative disc disease: Code(s): M51.36 - Other intervertebral disc degeneration, lumbar region Plan: Reinforced activity and weight-lifting restrictions Continue Methocarbamol 750 mg TID PRN, Naproxen 500 mg BID with food PRN and Gabapentin 300 mg TID (2) Insomnia: Code(s): G47.00 - Insomnia, unspecified Qualifiers: Insomnia type: unspecified Qualified Code(s): G47.00 - Insomnia, unspecified Plan: Sleep hygiene reinforced States that he has been doing well on Quetiapine 50 mg Q HS but would like to try going back on Trazodone as he keeps gaining weight with Quetiapine Will try switching him back to Trazodone 300 mg Q HS PRN He is instructed to call back if he still has trouble sleeping with Trazodone 300 mg (3) Obesity (BMI 30-39.9): Code(s): E66.9 - Obesity, unspecified Plan: Reinforced diet/exercise as tolerated/lose weight Plan Follow up in 6 months Medications: New trazodone 300 mg PO BEDTIME 30 days PRN 30 tabs 3RF sleep trazodone 300 mg PO BEDTIME PRN 30 tabs 3RF sleep 30 days Refilled tadalafil administer approximately 30min before sexual activity; do not use more than 1 dose per 24hrs 20 mg PO DAILY 30 days PRN 30 tabs 1RF sexual activity N52.9 - Male erectile dysfunction, unspecified Coding Level of Care Code Est Pt Level 3 (53708) Diagnoses Lumbar degenerative disc disease M51.36 Insomnia, unspecified type G47.00 Insomnia type: unspecified Obesity (BMI 30-39.9) E66.9
[2023-06-05 12:48] VITALS: BP 130/86; PULSE 89; O2SAT 96; BMI 36.3
== END 2023-06-05 13:20 | disposition home or self-care (01) ==
PROVIDERS: PCP Internal Medicine; Visit Provider Internal Medicine
DX: M51.36 Other intervertebral disc degeneration, lumbar region (principal); G47.00 Insomnia, unspecified; E66.9 Obesity, unspecified; Z68.36 Body mass index [BMI] 36.0-36.9, adult
CPT/HCPCS: 99213

== ENCOUNTER 2023-09-04 15:52 | Outpatient (AMB) | payer BC, SELFPAY ==
--- NOTE | 2023-09-04 15:58 | A.OFFPC_ITS ---
Vital Signs 09/04/23 15:59 Height 6 ft 1 in Weight 275 lb BMI 36.3 BP 130/72 Blood Pressure Location Lt brachial Position Sitting Pulse 90 Pulse Source Pulse Oximeter Pulse Oximetry (%) 95 Oxygen Delivery Method Room Air Intake Visit Reasons: hyperlipidemia, HTN, insomnia Intake Note: Patient is here to follow up on HLD, HTN, Insomnia. 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 Accompanied by: Self / Same As Patient Allergies No Known Allergies Allergy (Verified 09/06/23 06:41) Medication List - Last Reconciled 09/06/23 by Tab Rush MD amlodipine 5 mg PO QAM gabapentin 300 mg PO TID 30 days lisinopril 20 mg PO DAILY methocarbamol 750 mg PO TID PRN 30 days naproxen 500 mg PO BID PRN 30 days quetiapine 50 mg PO BEDTIME PRN tadalafil 20 mg PO DAILY PRN 30 days trazodone 300 mg PO BEDTIME PRN 30 days Tobacco use date assessed: 09/04/23 Dental Screening Dental Screen Date: 06/05/23 HPI hyperlipidemia, HTN, insomnia HPI Details Patient comes in today for his follow up visit States that he feels okay He denies any headaches or dizziness Denies any chest pains, no shortness of breath No nausea / vomiting, no abdominal pain although he has been experiencing frequent heartburns lately States that he has not really changed his diet significantly and does not eat any differently than before No change in bowel habits noted Still has chronic low back pain but states that they are mostly manageable PFSH Medical History (Updated 09/06/23 @ 11:53 by Tab Rush MD) GERD (gastroesophageal reflux disease) Obesity (BMI 30-39.9) Erectile dysfunction Insomnia Obstructive sleep apnea Benign essential hypertension Lumbar degenerative disc disease Spasm of muscle of lower back Surgical History S/P excision of lipoma (~2021) Hx of esophagogastroduodenoscopy History of repair of rotator cuff History of colonoscopy Family History Father Hypertension Cancer Mother Cancer Social History Household Members: None Housing: Apartment Do you presently have visiting nurse or other home services: No Alcohol intake: current Alcohol intake frequency: holidays/special occasions only Alcohol type: wine Patient Tobacco Use Status: Former Tobacco user Tobacco use type: Cigarette e-Cigarette/Vaping Use: Never Used Second Hand Smoke Exposure: No service: No Current occupational status: retired Cognitive needs: No Hearing needs: No Vision needs: Yes (Reading Glasses) Questionnaire Thrive Questionnaire Date Thrive assessed: 06/05/23 SANJU-7 AMB Questionnaire SANJU-7 Date SANJU - 7 assessed: 06/05/23 Source: Developed by Drs. Mehran Lizarraga, Mary Soliz, Bridger Guo and colleagues, with an educational marty from [employer]. Review of Systems Const Denies chills, Reports difficulty sleeping, Reports fatigue, Denies fever(s) and Denies headache(s) ENT Denies dysphagia, Denies dizziness, Denies otalgia, Denies headache(s), Denies neck pain, Denies odynophagia and Denies sore throat Card Denies chest pain, Denies palpitations and Denies dyspnea Resp Denies cough and Denies dyspnea GI Denies abdominal pain, Denies constipation, Denies dysphagia, Reports heartburn (frequent), Denies diarrhea, Denies nausea, Denies odynophagia and Denies vomiting Denies dysuria, Denies nocturia and Denies urinary frequency Musc Reports back pain (over the lower back - chronic) and Denies neck pain Skin/Breast Denies rash Neuro Denies dizziness and Denies headache(s) Endo Reports fatigue and Denies palpitations Physical exam (Primary Care) Vital Signs: Last Vital Signs Pulse 90 09/04/23 15:59 BP 130/72 09/04/23 15:59 Pulse Ox 95 09/04/23 15:59 Oxygen Delivery Method Room Air 09/04/23 15:59 BMI result Body Mass Index 36.3 Tobacco/Smoking Status: Tobacco use Status Tobacco use date assessed 09/04/23 09/04/23 16:03 Patient Tobacco Use Status Former Tobacco user 09/04/23 16:03 Tobacco use type Cigarette 09/04/23 16:03 e-Cigarette/Vaping Use Never Used 09/04/23 16:03 Thrive Assessment: Date of Thrive Assessment Date Thrive assessed 06/05/23 09/04/23 16:03 Const General: no acute distress and alert HENMT Ears: TM's normal bilaterally and EAC's normal Throat: Yes posterior oropharynx normal and Yes tonsils normal (no TP congestion) Neck Neck: Yes no lymphadenopathy and Yes supple Thyroid: Thyroid normal Resp Auscultation: clear to auscultation bilaterally, no rales and no wheezes Cardio Rate: regular rate Rhythm: regular rhythm Heart sounds: no murmurs GI Palpation (GI): Soft to palpation and nontender Auscultation: normal bowel sounds General: Yes no CVA tenderness Back/Spine/Pelvis Back: no CVA tenderness Thoracic/Lumbar Spine: lumbar spinal tenderness (chronic) Skin Rashes: no rashes Extrem General: Yes no clubbing, cyanosis or edema Assessment and Plan Assessment & Plan (1) GERD (gastroesophageal reflux disease): Code(s): K21.9 - Gastro-esophageal reflux disease without esophagitis Qualifiers: Esophagitis presence: without esophagitis Qualified Code(s): K21.9 - Gastro-esophageal reflux disease without esophagitis Plan: Patient states that he has been experiencing frequent and recurrent heartburns for the past few months and would like to have this checked out further States that he takes some OTC Tums at times with some relief Per request, will refer him to GI for further evaluation and consideration for EGD if appropriate (2) Benign essential hypertension: Code(s): I10 - Essential (primary) hypertension Plan: Reinforced low sodium diet - goal is systolic BP of at least 130 mm or less Continue Lisinopril 20 mg QD and Amlodipine 5 mg QD He is reminded to continue monitoring his BP regularly (3) Lumbar degenerative disc disease: Code(s): M51.36 - Other intervertebral disc degeneration, lumbar region Plan: Reinforced activity and weight-lifting restrictions Continue Methocarbamol 750 mg TID PRN, Naproxen 500 mg BID with food PRN and Gabapentin 300 mg TID Follow up with pain management as scheduled (4) Erectile dysfunction: Code(s): N52.9 - Male erectile dysfunction, unspecified Qualifiers: Erectile dysfunction type: unspecified Qualified Code(s): N52.9 - Male erectile dysfunction, unspecified Plan: Continue Tadalafil 20 mg PRN (5) Insomnia: Code(s): G47.00 - Insomnia, unspecified Qualifiers: Insomnia type: unspecified Qualified Code(s): G47.00 - Insomnia, unspecified Plan: Sleep hygiene reinforced Continue Trazodone 300 mg Q HS and Seroquel 50 mg Q HS (6) Obesity (BMI 30-39.9): Code(s): E66.9 - Obesity, unspecified Plan: Reinforced diet/exercise as tolerated/lose weight Plan To return as scheduled in 6 months for his annual physical examination Orders: Orders Complete Blood Count Auto Diff 6 Months D64.9 - Anemia, unspecified, Z00.00 - Encounter for general adult medical examination without abnormal findings Comprehensive [place]. Panel Fast 6 Months E78.00 - Pure hypercholesterolemia, unspecified, Z00.00 - Encounter for general adult medical examination without abnormal findings Lipid Panel 6 Months E78.00 - Pure hypercholesterolemia, unspecified, Z00.00 - Encounter for general adult medical examination without abnormal findings TSH reflex Free T4 6 Months E78.00 - Pure hypercholesterolemia, unspecified, Z00.00 - Encounter for general adult medical examination without abnormal findings Vitamin D 25-OH Total 6 Months E55.9 - Vitamin D deficiency, unspecified, Z00.00 - Encounter for general adult medical examination without abnormal findings Prostate Specific Antigen 6 Months N40.0 - Benign prostatic hyperplasia without lower urinary tract symptoms, Z00.00 - Encounter for general adult medical examination without abnormal findings UA CC w/rflx Micro + Cult 6 Months R30.0 - Dysuria, Z00.00 - Encounter for general adult medical examination without abnormal findings Vitamin B12 and Folate 6 Months E53.8 - Deficiency of other specified B group vitamins, Z00.00 - Encounter for general adult medical examination without abnormal findings Referrals Gastroenterology Referral K21.9 - Gastro-esophageal reflux disease without esophagitis Coding Level of Care Code Est Pt Level 4 (14051) Diagnoses Gastroesophageal reflux disease without esophagitis K21.9 Esophagitis presence: without esophagitis Benign essential hypertension I10 Lumbar degenerative disc disease M51.36 Erectile dysfunction, unspecified erectile dysfunction type N52.9 Erectile dysfunction type: unspecified Insomnia, unspecified type G47.00 Insomnia type: unspecified Obesity (BMI 30-39.9) E66.9
[2023-09-04 15:59] VITALS: BP 130/72; PULSE 90; O2SAT 95; BMI 36.3
== END 2023-09-04 17:03 | disposition home or self-care (01) ==
PROVIDERS: PCP Internal Medicine; Visit Provider Internal Medicine
DX: K21.9 Gastro-esophageal reflux disease without esophagitis (principal); E66.9 Obesity, unspecified; Z68.36 Body mass index [BMI] 36.0-36.9, adult; I10 Essential (primary) hypertension; M51.36 Other intervertebral disc degeneration, lumbar region; N52.9 Male erectile dysfunction, unspecified; G47.00 Insomnia, unspecified
CPT/HCPCS: 99214

== ENCOUNTER 2023-09-07 07:00 | Outpatient (REF) | payer BC, SELFPAY ==
[2023-09-07 11:41] LABS: MANUAL DIFF FLAG NO
[2023-09-07 11:55] LABS: Basophils Percent Auto 0.4 % (0-2); Eosinophils Absolute Auto 0.1 X10*3/uL (0.0-0.4); Hematocrit 45.4 % (42.0-52.0); Hemoglobin 14.2 g/dl (14.0-18.0); Imm Gran Abs Auto 0.01 X10*3/uL (0.00-0.03); Imm Gran Pct Auto 0.2 % (0.0-0.4); Lymphocytes Absolute Auto 2.1 X10*3/uL (1.2-4.9); Lymphocytes Percent Auto 44.5 % (20-40); Mean Corpuscular HGB Conc 31.3 g/dl (31.0-36.0); Mean Corpuscular Hemoglobin 28.2 pg (27.0-33.0); Mean Corpuscular Volume 90.3 fL (80.0-98.0); Mean Platelet Volume 11.2 fL (9.4-12.4); Monocytes Absolute Auto 0.6 X10*3/uL (0.1-1.2); Monocytes Percent Auto 13.4 % (2-11); Neutrophils Absolute Auto 1.8 x10*3/uL (2.0-8.3); Neutrophils Percent Auto 38.5 % (45-73); Platelet Count 188 X10*3/uL (160-400); Red Blood Count 5.03 X10*6/uL (4.60-5.80); Red Cell Distribution Width 15.4 % (11.0-16.0); White Blood Count 4.6 X10*3/uL (4.8-10.8)
[2023-09-07 12:23] LABS: Alanine Aminotransferase 40 U/L (0-40); Albumin Level 3.8 g/dL (3.5-5.0); Alkaline Phosphatase 49 U/L (39-117); Anion Gap 10 (12-20); Aspartate Amino Transferase 39 U/L (5-37); Bilirubin Total 0.7 mg/dL (0.0-1.0); Blood Urea Nitrogen 14 mg/dL (9-16); Calcium 9.1 mg/dL (8.4-10.2); Carbon Dioxide 27 mmol/L (22-29); Chloride 109 mmol/L (96-108); Cholesterol 165 mg/dL (<200); Estimated Glomerular Filt Rate > 60; Glucose Fasting 94 mg/dL (60-99); HDL Cholesterol 50 mg/dL (>40); LDL Cholesterol Calculated 105 mg/dL (<100); Potassium 4.4 mmol/L (3.3-5.1); Sodium 142 mmol/L (135-145); Total Protein 6.8 g/dL (6.5-8.0); Triglycerides 50 mg/dL (<150)
== END 2023-09-07 07:01 | disposition home or self-care (01) ==
LOC: HO.HMGCLDS 07:00
PROVIDERS: PCP Internal Medicine; Visit Provider Internal Medicine
DX: E78.00 Pure hypercholesterolemia, unspecified (principal); I10 Essential (primary) hypertension
CPT/HCPCS: 36415; 80053; 80061; 85025

== ENCOUNTER 2023-12-04 15:58 | Outpatient (AMB) | payer BC, SELFPAY ==
[2023-12-04 16:00] VITALS: BP 136/76; PULSE 97; O2SAT 97; BMI 36.4
--- NOTE | 2023-12-04 16:00 | A.OFFPC_ITS ---
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: Not Required per policy Accompanied by: Self / Same As Patient Allergies No Known Allergies Allergy (Verified 12/04/23 16:24) Medication List - Last Reconciled 12/04/23 by Tab Rush MD amlodipine 5 mg PO QAM gabapentin 300 mg PO TID 30 days lisinopril 20 mg PO DAILY methocarbamol 750 mg PO TID PRN 30 days naproxen 500 mg PO BID PRN 30 days quetiapine 50 mg PO BEDTIME PRN tadalafil 20 mg PO DAILY PRN 30 days trazodone 300 mg PO BEDTIME PRN 30 days Tobacco use date assessed: 12/04/23 Dental Screening Dental Screen Date: 12/04/23 HPI WC 4 Month F/U HPI Details Patient comes in today for his worker's comp follow up visit States that his low back pain remains well-controlled / managed on his current Rx He is presently still on Methocarbamol 750 mg TID PRN, Naproxen 500 mg BID PRN and Gabapentin 300 mg TID States that he also has a TENS unit that he has been using but needs to have a new Rx for this sent out - he got his first unit from [facility] a couple of years ago and is requesting to have his Rx sent to a different company this time He denies any headaches or dizziness Denies any chest pains, no increased SOB No nausea/vomiting, no abdominal pain No change in bowel habits noted PFSH Medical History GERD (gastroesophageal reflux disease) Obesity (BMI 30-39.9) Erectile dysfunction Insomnia Obstructive sleep apnea Benign essential hypertension Lumbar degenerative disc disease Spasm of muscle of lower back Surgical History S/P excision of lipoma (~2021) Hx of esophagogastroduodenoscopy History of repair of rotator cuff History of colonoscopy Family History Father Hypertension Cancer Mother Cancer Social History Household Members: None Housing: Apartment Do you presently have visiting nurse or other home services: No Alcohol intake: current Alcohol intake frequency: holidays/special occasions only Alcohol type: wine Patient Tobacco Use Status: Former Tobacco user Tobacco use type: Cigarette e-Cigarette/Vaping Use: Never Used Second Hand Smoke Exposure: No service: No Current occupational status: retired Cognitive needs: No Hearing needs: No Vision needs: Yes (Reading Glasses) Questionnaire PHQ-9 Over the last 2 weeks, how often have you been bothered by any of the following problems? 1. Little interest or pleasure in doing things: not at all 2. Feeling down, depressed, or hopeless: not at all 3. Trouble falling or staying asleep, or sleeping too much: not at all 4. Feeling tired or having little energy: not at all 5. Poor appetite or overeating: not at all 6. Feeling bad about yourself - or that you are a failure or have let yourself or your family down: not at all 7. Trouble concentrating on things, such as reading the newspaper or watching television: not at all 8. Moving or speaking so slowly that other people could have noticed. Or the opposite - being so fidgety or restless that you have been moving around a lot more than usual: not at all 9. Thoughts that you would be better off or of hurting yourself in some way: not at all Total score: 0 Depression Screening Interpretation: Negative Depression Screening Done: Yes 62605 - PHQ-9 Billing: Yes Source: Developed by Drs. Mehran Lizarraga, Mary Soliz, Bridger Guo and colleagues, with an educational marty from [employer]. Thrive Questionnaire Date Thrive assessed: 12/04/23 I am a: Patient What is your living situation today?: I have a steady place to live Within the past 12 months, did the food you bought not last and you didn't have the money to get more?: Never true Within the past 12 months, did you worry whether your food would run out before you got money to buy more?: Never true Do you have trouble paying for medicines?: No Do you have trouble getting transportation to medical appointments?: No Do you have trouble paying your heating and electricity bill?: No Do you have trouble taking care of your child, family member or friend?: No Do you have trouble with day-to-day activities such as bathing, preparing meals, shopping, managing finances, etc.?: No Are you currently unemployed and looking for a job?: No Are you interested in more education?: No Please select the resources that you would like help with: None Currently or been in a relationship where the following occur: No concerns reported THRIVE Score: 0 AUDIT C Alcohol Use Questionnaire (AUDIT-C) 1. How often do you have a drink containing alcohol?: Monthly or less 2. How many drinks containing alcohol do you have on a typical day when you are drinking?: 1 or 2 Total Score: 1 Score Reviewed/Action Taken: Yes SANJU-7 AMB Questionnaire SANJU-7 Date SANJU - 7 assessed: 12/04/23 Feeling nervous, anxious, or on edge: 0 = Not at all Not being able to stop or control worryin = Not at all Worrying too much about different things: 0 = Not at all Trouble relaxin = Not at all Being so restless that it is hard to sit still: 0 = Not at all Becoming easily annoyed or irritable: 0 = Not at all Feeling afraid as if something awful might happen: 0 = Not at all Total SANJU-7 score (0-4 normal; 5-9 mild; 10-14 moderate; 15-21 severe): 0 Source: Developed by Drs. Mehran Lizarraga, Mary Soliz, Bridger Guo and colleagues, with an educational marty from [employer]. Review of Systems Const Reports difficulty sleeping (at times), Reports fatigue, Denies fever(s) and Denies headache(s) ENT Denies dysphagia, Denies dizziness, Denies otalgia, Denies headache(s), Denies neck pain, Denies odynophagia and Denies sore throat Card Denies chest pain, Denies palpitations and Denies dyspnea Resp Denies chest congestion, Denies cough and Denies dyspnea GI Denies abdominal pain, Denies constipation, Denies dysphagia, Denies heartburn, Denies diarrhea, Denies nausea, Denies odynophagia and Denies vomiting Denies dysuria, Denies nocturia and Denies urinary frequency Musc Reports back pain (over the lower back - chronic) and Denies neck pain Skin/Breast Denies rash Neuro Denies dizziness and Denies headache(s) Endo Reports fatigue and Denies palpitations Physical exam (Primary Care) Vital Signs: Last Vital Signs Pulse 97 12/04/23 16:00 BP 136/76 12/04/23 16:00 Pulse Ox 97 12/04/23 16:00 Oxygen Delivery Method Room Air 12/04/23 16:00 BMI result Body Mass Index 36.4 Tobacco/Smoking Status: Tobacco use Status Tobacco use date assessed 12/04/23 12/04/23 16:01 Patient Tobacco Use Status Former Tobacco user 12/04/23 16:01 Tobacco use type Cigarette 12/04/23 16:01 e-Cigarette/Vaping Use Never Used 12/04/23 16:01 PHQ-9: PHQ-9 Score PHQ-9: Total score 0 12/04/23 16:06 Depression Screening Interpretation: Negative Thrive Assessment: Date of Thrive Assessment Date Thrive assessed 12/04/23 12/04/23 16:01 Currently or been in a relationship where the following occur: No concerns reported Const General: no acute distress and alert HENMT Ears: TM's normal bilaterally and EAC's normal Throat: Yes posterior oropharynx normal and Yes tonsils normal (no TP congestion) Neck Neck: Yes no lymphadenopathy and Yes supple Thyroid: Thyroid normal Resp Auscultation: clear to auscultation bilaterally, no rales and no wheezes Cardio Rate: regular rate Rhythm: regular rhythm Heart sounds: no murmurs GI Palpation (GI): Soft to palpation and nontender Auscultation: normal bowel sounds General: Yes no CVA tenderness Back/Spine/Pelvis Back: no CVA tenderness Thoracic/Lumbar Spine: lumbar spinal tenderness (chronic) Skin Rashes: no rashes Extrem General: Yes no clubbing, cyanosis or edema Assessment and Plan Assessment & Plan (1) Lumbar degenerative disc disease: Code(s): M51.36 - Other intervertebral disc degeneration, lumbar region Plan: Reinforced activity and weight-lifting restrictions Continue Methocarbamol 750 mg TID PRN, Naproxen 500 mg BID with food PRN and Gabapentin 300 mg TID Have advised patient that his previous TENS unit was actually prescribed by pain management and he should get back in to see them again and have them help address his TENS unit prescription issue Have advised him that we do not normally prescribe these and really have no idea how to ever start, much less reach out to the companies making them as we have no access to these Will refer him back to Pain Management as it has been a couple of years now since he was seen by them (2) Insomnia: Code(s): G47.00 - Insomnia, unspecified Qualifiers: Insomnia type: unspecified Qualified Code(s): G47.00 - Insomnia, unspecified Plan: Sleep hygiene reinforced Continue Trazodone 300 mg Q HS PRN He also takes Quetiapine 50 mg Q HS, which helps as well (3) Obesity (BMI 30-39.9): Code(s): E66.9 - Obesity, unspecified Plan: Reinforced diet/exercise as tolerated/lose weight Plan Follow up in 6 months Orders: Referrals Pain Management Referral M54.50 - Low back pain, unspecified Medications: New pramoxine 1% Apply sparingly to the perianal area twice a day as needed for irritation/itching; 340 grams 0RF Coding Level of Care Code Est Pt Level 3 (71250) Diagnoses Lumbar degenerative disc disease M51.36 Insomnia, unspecified type G47.00 Insomnia type: unspecified Obesity (BMI 30-39.9) E66.9
== END 2023-12-04 16:41 | disposition home or self-care (01) ==
PROVIDERS: PCP Internal Medicine; Visit Provider Internal Medicine
DX: M51.36 Other intervertebral disc degeneration, lumbar region (principal); G47.00 Insomnia, unspecified; E66.9 Obesity, unspecified; Z68.34 Body mass index [BMI] 34.0-34.9, adult

== ENCOUNTER → 2023-12-04 15:58 | Outpatient (BNVA) | payer OTHER, SELFPAY | PROVIDERS: PCP Internal Medicine; Visit Provider Internal Medicine | DX: M51.36 Other intervertebral disc degeneration, lumbar region (principal); G47.00 Insomnia, unspecified; E66.9 Obesity, unspecified; Z68.36 Body mass index [BMI] 36.0-36.9, adult; Z79.899 Other long term (current) drug therapy | CPT/HCPCS: 96127 ==

== ENCOUNTER 2024-06-09 15:21 | Outpatient (AMB) | payer OTHER, BC, SELFPAY ==
[2024-06-09 15:35] VITALS: BP 138/74; PULSE 97; RESP 20; TEMP 36.7; O2SAT 97; BMI 35.8
--- NOTE | 2024-06-09 15:35 | A.OFFPC_ITS ---
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 Accompanied by: Self / Same As Patient Allergies No Known Allergies Allergy (Verified 06/12/24 00:03) Medication List - Last Reconciled 06/12/24 by EDDY Chowdary amlodipine 5 mg PO QAM gabapentin 300 mg PO TID 30 days lisinopril 20 mg PO DAILY naproxen 500 mg PO BID PRN 30 days quetiapine 50 mg PO BEDTIME PRN tadalafil 20 mg PO DAILY PRN 30 days tizanidine 4 mg PO TID PRN Tobacco use date assessed: 06/09/24 Dental Screening Dental Screen Date: 06/09/24 Did you have a dental visit in the last 12 months?: No Did you have a dental problem in the last 6 months where you did not have access to dental care?: No Was dental information given to patient?: Patient has dentist HPI worker's comp follow up HPI Details The patient is a 64-year-old male who was presenting for ongoing workman's comp evaluation The patient reports that his back is still hurting. Reports that he is having more issues with the sciatica nerve and hip; this is bilateral but is more frequent in his right hip Patient reports that the pain is stabbing-like in nature This is a reports that he heard good things about gene therapy and wanted to know if there was any facilities close by that offers this The patient denies chest pain, shortness of breath, heart palpitation and dizziness PFSH Medical History GERD (gastroesophageal reflux disease) Obesity (BMI 30-39.9) Erectile dysfunction Insomnia Obstructive sleep apnea Benign essential hypertension Lumbar degenerative disc disease Spasm of muscle of lower back Surgical History S/P excision of lipoma (~2021) Hx of esophagogastroduodenoscopy History of repair of rotator cuff History of colonoscopy Family History Father Hypertension Cancer Mother Cancer Social History Household Members: None Housing: Apartment Do you presently have visiting nurse or other home services: No Alcohol intake: current Alcohol intake frequency: holidays/special occasions only Alcohol type: wine Patient Tobacco Use Status: Former Tobacco user Tobacco use type: Cigarette e-Cigarette/Vaping Use: Never Used Second Hand Smoke Exposure: No service: No Current occupational status: retired Cognitive needs: No Hearing needs: No Vision needs: Yes (Reading Glasses) Questionnaire PHQ-9 Over the last 2 weeks, how often have you been bothered by any of the following problems? 1. Little interest or pleasure in doing things: not at all 2. Feeling down, depressed, or hopeless: not at all 3. Trouble falling or staying asleep, or sleeping too much: not at all 4. Feeling tired or having little energy: not at all 5. Poor appetite or overeating: not at all 6. Feeling bad about yourself - or that you are a failure or have let yourself o r your family down: not at all 7. Trouble concentrating on things, such as reading the newspaper or watching television: not at all 8. Moving or speaking so slowly that other people could have noticed. Or the opposite - being so fidgety or restless that you have been moving around a lot more than usual: not at all 9. Thoughts that you would be better off or of hurting yourself in some way: not at all Total score: 0 Depression Screening Interpretation: Negative Depression Screening Done: Yes 33718 - PHQ-9 Billing: Yes Source: Developed by Drs. Mehran Lizarraga, Mary Soliz, Bridger brown nd colleagues, with an educational marty from [employer]. Thrive Questionnaire Date Thrive assessed: 12/04/23 I am a: Patient What is your living situation today?: I have a steady place to live Within the past 12 months, did the food you bought not last and you didn't have the money to get more?: Never true Within the past 12 months, did you worry whether your food would run out before you got money to buy more?: Never true Do you have trouble paying for medicines?: No Do you have trouble getting transportation to medical appointments?: No Do you have trouble paying your heating and electricity bill?: No Do you have trouble taking care of your child, family member or friend?: No Do you have trouble with day-to-day activities such as bathing, preparing meals, shopping, managing finances, etc.?: No Are you currently unemployed and looking for a job?: No Are you interested in more education?: No Please select the resources that you would like help with: None Currently or been in a relationship where the following occur: No concerns reported THRIVE Score: 0 AUDIT C Alcohol Use Questionnaire (AUDIT-C) 1. How often do you have a drink containing alcohol?: Monthly or less 2. How many drinks containing alcohol do you have on a typical day when you are drinking?: 1 or 2 3. How often do you have six or more drinks on one occasion?: Never Total Score: 1 Score Reviewed/Action Taken: Yes SANJU-7 AMB Questionnaire SANJU-7 Date SANJU - 7 assessed: 06/09/24 Feeling nervous, anxious, or on edge: 0 = Not at all Not being able to stop or control worryin = Not at all Worrying too much about different things: 0 = Not at all Trouble relaxin = Not at all Being so restless that it is hard to sit still: 0 = Not at all Becoming easily annoyed or irritable: 0 = Not at all Feeling afraid as if something awful might happen: 0 = Not at all Total SANJU-7 score (0-4 normal; 5-9 mild; 10-14 moderate; 15-21 severe): 0 Source: Developed by Drs. Mehran Lizarraga, Mayr Soliz, Bridger Guo and colleagues, with an educational marty from [employer]. SANJU-7 Assessment Billing SANJU-7 Assessment Tool: SANJU-7 Assessment 08263 Review of Systems ENT Denies sore throat Card Denies chest pain, Denies leg edema and Denies lightheadedness Resp Denies cough and Denies hemoptysis Musc Reports back pain (lower back), Reports arthralgias (bilateral hips), Denies joint swelling and Reports radiating pain into limb (down both legs intermittently-mostly down the right) Neuro Denies Abnormal speech present Physical exam (Primary Care) Vital Signs: Last Vital Signs Temp 98.0 F 06/09/24 15:35 Pulse 97 06/09/24 15:35 Resp 20 06/09/24 15:35 BP 138/74 06/09/24 15:35 Pulse Ox 97 06/09/24 15:35 Oxygen Delivery Method Room Air 06/09/24 15:35 BMI result Body Mass Index 35.8 Tobacco/Smoking Status: Tobacco use Status Tobacco use date assessed 06/09/24 06/09/24 15:46 Patient Tobacco Use Status Former Tobacco user 06/09/24 15:46 Tobacco use type Cigarette 06/09/24 15:46 e-Cigarette/Vaping Use Never Used 06/09/24 15:46 PHQ-9: PHQ-9 Score PHQ-9: Total score 0 06/12/24 00:05 Depression Screening Interpretation: Negative Thrive Assessment: Date of Thrive Assessment Date Thrive assessed 12/04/23 06/09/24 15:46 Currently or been in a relationship where the following occur: No concerns reported Const General: healthy appearing, no acute distress, alert and awake Nutritional Appearance: well nourished Orientation/consciousness: oriented to person, oriented to place and oriented to time HENMT Ears: external ears normal General nose exam: Normal external nose present Eyes Conjunctivae: conjunctivae normal Sclerae: sclerae normal Pupils: Equal, round and reactive pupils present Resp Effort & Inspection: normal respiratory effort and not tachypneic Auscultation: no crackles, no rales, no rhonchi and no wheezes Cardio Rate: regular rate Rhythm: regular rhythm Heart sounds: no murmurs and normal S1 and S2 Back/Spine/Pelvis Cervical Spine: No Cervical spine tenderness Thoracic/Lumbar Spine: No thoracic spinal tenderness and lumbar spinal tenderness Skin General skin exam: no rashes or lesions noted and dry skin Neuro General: oriented to person, oriented to place and oriented to time Cranial nerves: Yes Equal, round and reactive pupils present Speech: No Abnormal speech present Gait exam (Neuro): Normal gait present Motor exam (neuro): no tremor noted Extrem Right upper extremity: full ROM Left upper extremity: full ROM Right lower extremity: full ROM; no edema Left lower extremity: full ROM; no edema Coding Level of Care Code Est Pt Level 3 (41201) Diagnoses Degeneration of intervertebral disc of lumbar region, unspecified whether pain present M51.369 Disc-related pain type: unspecified whether pain present Additional Codes SANJU-7 Assessment Billing - SANJU-7 Assessment Tool: SANJU-7 Assessment 26002 ([id number]) PHQ-9 - 43028 - PHQ-9 Billing: Yes ([id number]) Time Spent (min) 29 Assessment & Plan Assessment & Plan (1) Lumbar degenerative disc disease: Code(s): M51.36 - Other intervertebral disc degeneration, lumbar region Category: Medical Qualifiers: Disc-related pain type: unspecified whether pain present Qualified Code(s): M51.369 - Other intervertebral disc degeneration, lumbar region without mention of lumbar back pain or lower extremity pain Plan: Avoid bed rest (including sitting in bed) and to simply limit painful activities; improvement usually occurs within a few weeks May use cool packs; may alternate cold and hot packs Exercises a rocha (e.g., walking, swimming, cycling) as soon as possible, starting with 5-10 min and walk-in up to 20-30 minute q.day Abdominal core and back strengthening exercises may help to prevent future problems continue gabapentin 300 mg TID, naproxen 500 mg BID PRN, Tizanidine 4 mg TID PRN Medications: Refilled naproxen Take with food 500 mg PO BID 30 days PRN 60 tabs 5RF pain methocarbamol 750 mg PO TID 30 days PRN 90 tabs 5RF low back pain
--- OUTSIDE RECORDS SUMMARY | 2024-06-09 16:44 | XMS_ITS | Patient Health Record ---
Author Organization [facility] Address [address] [place] [address] Care Team Providers Care Social Work Professor Name Role Phone Victor Manuel SOLIZ, [place] Primary Care Provider Mehran Valdez Unavailable [phone] Reason For Referral No Information Medications Medication SIG (Take, Route, Frequency, Duration) Notes Start Date End Date Status Valsartan-hydroCHLOROthiazi de Active Lisinopril Active amLODIPine Besylate Active traZODone HCl Active Dicyclomine HCl 10 MG 1-2 capsules Orall y Four times a day as needed for abdominal discomfort/bloating for 30 day(s) 07/09/2016 Active Omeprazole 20 MG 1 capsule Orally Onc e a day for 30 day(s) 07/09/2016 Active Social History Tobacco Use: Social History Observation Description Date Details (start date - stop date) Former Smoker NA - NA Tobacco Use/Smoking Question Answer Notes Patient is a former smoker How long has it been since you last smoked? 5-10 years Section Notes: Nonsmoker since 2006, no sig alcohol Nonsmoker since 2006, no sig alcohol Problems Problem Type SNOMED Code ICD Code Onset Dates Problem Status W/U Status Risk Notes Problem 569892202 Abdominal bloating (R14.0) Active confirmed Problem 07008241 Abdominal pain, epigastric (R10.13) Active confirmed Plan Of Treatment Pending Test Test Name Order Date US ABD 07/09/2016 Future Test Test Name Order Date UPPER GI ENDOSCOPY 02/21/2014 COLONOSCOPY 02/21/2014 UPPER GI ENDOSCOPY 07/09/2016 Insurance Providers Payer Name Payer Address Payer Phone Subscriber Number Group Number Insured Name Patient Relationship to Insured Coverage Start Date Coverage End Date O [employer] CLAIM[employer] [address] [place] [address] [id number] DAYNE JOSH Self - patient is the insured Medical (General) History Medical History History ICD Code Colonoscopy in 2003--neg. ex cept for hyperplastic and inflammatory polyps, diverticulosis, and internal hemorrhoids Denies [place],DM,CVA,Lung disease,renal dise ase HTN Chronic back pain----spinal stenosis Insomnia EGD 05/2014--neg. except for a small HH Colonoscopy in 05/2014-negative Surgical History Surgery Date(Month/Year) Rotator cuff tear repair-right
== END 2024-06-09 16:13 | disposition home or self-care (01) ==
LOC: HO.HMCH 15:21
PROVIDERS: PCP Internal Medicine
DX: M51.369 Other intervertebral disc degeneration, lumbar region without mention of lumbar back pain or lower extremity pain (principal)

== ENCOUNTER → 2024-06-09 15:21 | Outpatient (BNVA) | payer OTHER, BC, SELFPAY | PROVIDERS: PCP Internal Medicine | DX: M51.369 Other intervertebral disc degeneration, lumbar region without mention of lumbar back pain or lower extremity pain (principal) | CPT/HCPCS: 96127; 99212 ==

== ENCOUNTER 2025-01-25 13:35 | Outpatient (AMB) | payer OTHER, SELFPAY ==
[2025-01-25 13:49] VITALS: BP 134/92; PULSE 80; O2SAT 97; BMI 38.1
--- NOTE | 2025-01-25 13:49 | MHC.PC.OV ---
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 Accompanied by: Self / Same As Patient Allergies No Known Allergies Allergy (Verified 01/25/25 14:22) Medication List - Last Reconciled 01/25/25 by Tab Rush MD amlodipine 5 mg PO QAM gabapentin 300 mg PO TID 30 days lisinopril 20 mg PO DAILY metaxalone 800 mg PO TID PRN naproxen 500 mg PO BID PRN 30 days quetiapine 50 mg PO BEDTIME PRN tadalafil 20 mg PO DAILY PRN 30 days Tobacco use date assessed: 01/25/25 Dental Screening Dental Screen Date: 01/25/25 Did you have a dental visit in the last 12 months?: No Did you have a dental problem in the last 6 months where you did not have access to dental care?: No Was dental information given to patient?: No HPI worker's comp HPI Details Patient comes in today for his worker's comp follow up visit States that his low back pain has been well-controlled / managed with his current Rx but feels that his low back pain has been getting worse lately as he has not had the same relief from his usual meds lately He denies any recent injury or trauma to his lower back He is presently still on Metaxalone 800 mg TID PRN, Naproxen 500 mg BID PRN and Gabapentin 300 mg TID - will need a couple of his Rx refilled today He also had a TENS unit in the past but he has not used this since his unit is old and no longer working properly He denies any headaches or dizziness Denies any chest pains, no increased SOB No nausea/vomiting, no abdominal pain No change in bowel habits noted [facility] Medical History Essential hypertension GERD (gastroesophageal reflux disease) Obesity (BMI 30-39.9) Erectile dysfunction Insomnia Obstructive sleep apnea Benign essential hypertension Lumbar degenerative disc disease Spasm of muscle of lower back Surgical History S/P excision of lipoma (~2021) Hx of esophagogastroduodenoscopy History of repair of rotator cuff History of colonoscopy Family History Father Hypertension Cancer Mother Cancer Social History Household Members: None Housing: Apartment Do you presently have visiting nurse or other home services: No Alcohol intake: current Alcohol intake frequency: holidays/special occasions only Alcohol type: wine Patient Tobacco Use Status: Former Tobacco user Tobacco use type: Cigarette e-Cigarette/Vaping Use: Never Used Second Hand Smoke Exposure: No service: No Current occupational status: retired Cognitive needs: No Hearing needs: No Vision needs: Yes (Reading Glasses) Questionnaire PHQ-9 Over the last 2 weeks, how often have you been bothered by any of the following problems? 1. Little interest or pleasure in doing things: several days 2. Feeling down, depressed, or hopeless: not at all 3. Trouble falling or staying asleep, or sleeping too much: not at all 4. Feeling tired or having little energy: several days 5. Poor appetite or overeating: not at all 6. Feeling bad about yourself - or that you are a failure or have let yourself or your family down: not at all 7. Trouble concentrating on things, such as reading the newspaper or watching television: not at all 8. Moving or speaking so slowly that other people could have noticed. Or the opposite - being so fidgety or restless that you have been moving around a lot more than usual: not at all 9. Thoughts that you would be better off or of hurting yourself in some way: not at all Total score: 2 Depression Screening Interpretation: Negative Depression Screening Done: Yes 83198 - PHQ-9 Billing: Yes Source: Developed by Drs. Mehran Lizarraga, Mary Soliz, Bridger Guo and colleagues, with an educational marty from [employer]. Thrive Questionnaire Date Thrive assessed: 01/25/25 I am a: Patient What is your living situation today?: I choose not to answer this question Within the past 12 months, did the food you bought not last and you didn't have the money to get more?: I choose not to answer this question Within the past 12 months, did you worry whether your food would run out before you got money to buy more?: I choose not to answer this question Do you have trouble paying for medicines?: I choose not to answer this question Do you have trouble getting transportation to medical appointments?: I choose not to answer this question Do you have trouble paying your heating and electricity bill?: I choose not to answer this question Do you have trouble taking care of your child, family member or friend?: I choose not to answer this question Do you have trouble with day-to-day activities such as bathing, preparing meals, shopping, managing finances, etc.?: I choose not to answer this question Are you currently unemployed and looking for a job?: I choose not to answer this question Are you interested in more education?: I choose not to answer this question Please select the resources that you would like help with: None Currently or been in a relationship where the following occur: I choose not to answer THRIVE Score: 0 AUDIT C Alcohol Use Questionnaire (AUDIT-C) 1. How often do you have a drink containing alcohol?: Never 3. How often do you have six or more drinks on one occasion?: Never Total Score: 0 Score Reviewed/Action Taken: Yes SANJU-7 AMB Questionnaire SANJU-7 Date SANJU - 7 assessed: 01/25/25 Feeling nervous, anxious, or on edge: 0 = Not at all Not being able to stop or control worryin = Not at all Worrying too much about different things: 0 = Not at all Trouble relaxin = Not at all Being so restless that it is hard to sit still: 0 = Not at all Becoming easily annoyed or irritable: 0 = Not at all Feeling afraid as if something awful might happen: 0 = Not at all Total SANJU-7 score (0-4 normal; 5-9 mild; 10-14 moderate; 15-21 severe): 0 Source: Developed by Drs. Mehran Lizarraga, Mary Soliz, Bridger Guo and colleagues, with an educational marty from [employer]. Review of Systems Const Reports difficulty sleeping (at times), Reports fatigue, Denies fever(s) and Denies headache(s) ENT Denies dysphagia, Denies dizziness, Denies otalgia, Denies headache(s), Denies neck pain, Denies odynophagia and Denies sore throat Card Denies chest pain, Denies palpitations and Denies dyspnea Resp Denies chest congestion, Denies cough and Denies dyspnea GI Denies abdominal pain, Denies constipation, Denies dysphagia, Denies heartburn, Denies diarrhea, Denies nausea, Denies odynophagia and Denies vomiting Denies difficulty urinating, Denies dysuria, Denies nocturia and Denies urinary frequency Musc Reports back pain (over the lower back - chronic) and Denies neck pain Skin/Breast Denies rash Neuro Denies dizziness and Denies headache(s) Endo Reports fatigue and Denies palpitations Physical exam (Primary Care) Vital Signs: Last Vital Signs Pulse 80 01/25/25 13:49 BP 134/92 H 01/25/25 13:49 Pulse Ox 97 01/25/25 13:49 Oxygen Delivery Method Room Air 01/25/25 13:49 BMI result Body Mass Index 38.1 Tobacco/Smoking Status: Tobacco use Status Tobacco use date assessed 01/25/25 01/25/25 13:59 Patient Tobacco Use Status Former Tobacco user 01/25/25 13:59 Tobacco use type Cigarette 01/25/25 13:59 e-Cigarette/Vaping Use Never Used 01/25/25 13:59 PHQ-9: PHQ-9 Score PHQ-9: Total score 2 01/25/25 14:23 Depression Screening Interpretation: Negative Thrive Assessment: Date of Thrive Assessment Date Thrive assessed 01/25/25 01/25/25 13:59 Currently or been in a relationship where the following occur: I choose not to answer Const General: no acute distress and alert HENMT Ears: TM's normal bilaterally and EAC's normal Throat: Yes posterior oropharynx normal and Yes tonsils normal (no TP congestion) Neck Neck: Yes supple and No lymphadenopathy Thyroid: Thyroid normal Resp Auscultation: clear to auscultation bilaterally, no rales and no wheezes Cardio Rate: regular rate Rhythm: regular rhythm Heart sounds: no murmurs GI Palpation (GI): Soft to palpation and nontender Auscultation: normal bowel sounds General: Yes no CVA tenderness Back/Spine/Pelvis Back: no CVA tenderness Thoracic/Lumbar Spine: lumbar spinal tenderness (chronic - increased lately) Skin Rashes: no rashes Extrem General: Yes no clubbing, cyanosis or edema Coding Level of Care Code Est Pt Level 4 (13561) Diagnoses Degeneration of intervertebral disc of lumbar region, unspecified whether pain present M51.369 Disc-related pain type: unspecified whether pain present Essential hypertension I10 Erectile dysfunction, unspecified erectile dysfunction type N52.9 Erectile dysfunction type: unspecified Insomnia, unspecified type G47.00 Insomnia type: unspecified Mood disorder F39 Obesity (BMI 30-39.9) E66.9 Additional Codes PHQ-9 - 50089 - PHQ-9 Billing: Yes ([id number]) Assessment & Plan Assessment & Plan (1) Lumbar degenerative disc disease: Code(s): M51.36 - Other intervertebral disc degeneration, lumbar region Category: Medical Qualifiers: Disc-related pain type: unspecified whether pain present Qualified Code(s): M51.369 - Other intervertebral disc degeneration, lumbar region without mention of lumbar back pain or lower extremity pain Plan: Reinforced activity and weight lifting restrictions Continue Gabapentin 300 mg TID, Naproxen 500 mg BID PRN and Metaxalone 800 mg PRN - Rx refilled As his low back pain has been reportedly feeling worse lately, will send patient for repeat lumbar spine x-rays [id number] for further evaluation (2) Essential hypertension: Code(s): I10 - Essential (primary) hypertension Category: Medical Plan: Reinforced low sodium diet - goal is systolic BP of 120 to 130 mm or less Continue Amlodipine 5 mg QD and Lisinopril 20 mg QD Patient is reminded to continue monitoring his blood pressure regularly (3) Erectile dysfunction: Code(s): N52.9 - Male erectile dysfunction, unspecified Category: Medical Qualifiers: Erectile dysfunction type: unspecified Qualified Code(s): N52.9 - Male erectile dysfunction, unspecified Plan: Continue Tadalafil 20 mg PRN (4) Insomnia: Code(s): G47.00 - Insomnia, unspecified Category: Medical Qualifiers: Insomnia type: unspecified Qualified Code(s): G47.00 - Insomnia, unspecified Plan: Sleep hygiene reinforced He used to take Trazodone 300 mg once a day at bedtime but stopped taking this a while back when it was no longer helping States that his current Gabapentin and Quetiapine at bedtime help him somewhat with his sleep at night (5) Mood disorder: Code(s): F39 - Unspecified mood [affective] disorder Category: Medical Plan: This is likely related to his chronic low back pain and activity limitations as a result of his back issues Continue Quetiapine 50 mg Q HS (6) Obesity (BMI 30-39.9): Code(s): E66.9 - Obesity, unspecified Category: Medical Plan: Reinforced diet/exercise as tolerated/ lose weight Plan Follow up in 6 months Orders: Orders XR lumbar spine 2-3V 01/25/25 M54.50 - Low back pain, unspecified Medications: Refilled naproxen Take with food 500 mg PO BID PRN 60 tabs 5RF pain 30 days metaxalone 800 mg PO TID PRN 90 tabs 0RF low back pain
== END 2025-01-25 15:00 | disposition home or self-care (01) ==
LOC: HO.HMCH 13:36
PROVIDERS: PCP Internal Medicine; Visit Provider Internal Medicine
DX: M51.369 Other intervertebral disc degeneration, lumbar region without mention of lumbar back pain or lower extremity pain (principal); I10 Essential (primary) hypertension; G47.00 Insomnia, unspecified; F39 Unspecified mood [affective] disorder; E66.9 Obesity, unspecified; Z68.38 Body mass index [BMI] 38.0-38.9, adult; N52.9 Male erectile dysfunction, unspecified

== ENCOUNTER → 2025-01-25 13:35 | Outpatient (BNVA) | payer OTHER, BC, SELFPAY | PROVIDERS: PCP Internal Medicine; Visit Provider Internal Medicine | DX: M51.369 Other intervertebral disc degeneration, lumbar region without mention of lumbar back pain or lower extremity pain (principal); N52.9 Male erectile dysfunction, unspecified; I10 Essential (primary) hypertension; G47.00 Insomnia, unspecified; F39 Unspecified mood [affective] disorder; E66.9 Obesity, unspecified; Z68.38 Body mass index [BMI] 38.0-38.9, adult | CPT/HCPCS: 96127; 99212 ==